=== PATIENT | male | born 1970 | race Two or more races ===

== ENCOUNTER 2023-07-02 19:24 | Emergency (ER) | payer MEDICAID, OTHER ==
[~2023-07-02] VITALS: Ht 165.1 cm; Wt 90.4 kg
[2023-07-02 21:32] LABS: Basophils # (auto) 0 10 ^3/uL (0-0.2); Basophils % (auto) 0.4 % (0.0-2.0); Eosinophils # (auto) 0.1 10 ^3/uL (0-0.8); Eosinophils % (auto) 1.6 % (0.0-7.0); Hematocrit 41.9 % (41.0-53.0); Hemoglobin 14.3 g/dL (13.5-17.5); Lymphocytes # (auto) 2.1 10 ^3/uL (0.4-5.4); Lymphocytes % (auto) 35.6 % (10.0-50.0); Mean Corpuscular Hemoglobin 28.9 pg (28.0-32.0); Mean Corpuscular Hgb Conc. 34.2 g/dL (32.0-36.0); Mean Corpuscular Volume 84.5 fL (80.0-100.0); Monocytes # (auto) 0.8 10 ^3/uL (0-1.3); Neutrophils % (auto) 49.4 % (37.0-80.0); Nucleated Red Blood Cells % 0.1 %; Red Blood Cells 4.96 10^6/uL (4.5-5.90); Red Cell Distribution Width 12.8 % (11.8-14.3)
[2023-07-02] MEDS ORDERED: KETOROLAC TROMETH 60MG/2ML VIAL IM ONE (21:45)
[2023-07-02 23:33] LABS: Erythrocyte Sedimentation Rate 16 mm/hr (0-20)
[2023-07-02] MEDS ORDERED: IBUP-1455 PO (23:43)
[2023-07-02] MEDS ORDERED: BACDST PO (23:43)
[2023-07-02] MEDS ORDERED: HYDROcodone-ACET 5/325MG TAB PO ONE (23:45)
[2023-07-02] MEDS ORDERED: cefTRIAXone SOD 1,000 MG VL IM ONE (23:45)
[2023-07-03 00:02] VITALS: BP 141/71; PULSE 68; RESP 18; TEMP 98.2; O2SAT 98
== END 2023-07-03 00:34 | disposition home or self-care (01) ==
LOC: ER 19:24
DX: L03.115 Cellulitis of right lower limb (principal); I10 Essential (primary) hypertension; E11.9 Type 2 diabetes mellitus without complications
CPT/HCPCS: 36415; 73630; 85025; 85652; 86141; 93971; 96372; 99285; J0696; J1885

== ENCOUNTER 2023-07-05 10:09 | Inpatient (IN) | payer MEDICAID ==
[~2023-07-05] VITALS: Ht 167.6 cm; Wt 90.0 kg
[~2023-07-05 10:09] MED LIST: BACDST PO; IBUP-1455 PO
[2023-07-05] MEDS: VANCOMYCIN 1GM/200ML 200 ML IV ONE (11:15)
[2023-07-05 11:49] LABS: Basophils # (auto) 0 10 ^3/uL (0-0.2); Basophils % (auto) 0.3 % (0.0-2.0); Eosinophils # (auto) 0.1 10 ^3/uL (0-0.8); Eosinophils % (auto) 1.4 % (0.0-7.0); Hematocrit 44.2 % (41.0-53.0); Hemoglobin 15.1 g/dL (13.5-17.5); Lymphocytes # (auto) 2.2 10 ^3/uL (0.4-5.4); Lymphocytes % (auto) 33.5 % (10.0-50.0); Mean Corpuscular Hemoglobin 28.8 pg (28.0-32.0); Mean Corpuscular Hgb Conc. 34.1 g/dL (32.0-36.0); Mean Corpuscular Volume 84.4 fL (80.0-100.0); Monocytes # (auto) 0.4 10 ^3/uL (0-1.3); Monocytes % (auto) 6.8 % (0.0-12.0); Neutrophils # (auto) 3.8 10 ^3/uL (1.6-8.6); Nucleated Red Blood Cells % 0.1 %; Red Blood Cells 5.24 10^6/uL (4.5-5.90); Red Cell Distribution Width 12.9 % (11.8-14.3); White Blood Cell 6.6 10^3/uL (4.4-10.8)
[2023-07-05 12:08] LABS: Chloride 105 mmol/L (98-107); Potassium 4.1 mmol/L (3.5-5.1); Sodium 137 mmol/L (136-145)
[2023-07-05 12:09] LABS: Anion Gap 8 (5-15); Calcium 9.4 mg/dL (8.5-10.1); Carbon Dioxide 24 mmol/L (20-30)
[2023-07-05 12:14] LABS: BUN/Creatinine Ratio 13.2 (10.0-20.0); Blood Urea Nitrogen 12 mg/dL (9-23); Glucose 127 mg/dL (74-106)
[2023-07-05] MEDS ORDERED: DOCUSATE SOD 100 MG CAP PO PRN (13:30)
[2023-07-05] MEDS ORDERED: DEXTROSE (50%) 50ML SYRG IV PRN (13:30)
[2023-07-05] MEDS ORDERED: VANCOMYCIN PER PHARMACY 0 MG IV SCH (13:30)
[2023-07-05] MEDS ORDERED: VANCOMYCIN 1GM/200ML 200 ML IV ONE (14:00)
[2023-07-05] MEDS: TETANUS-DIPTH-ACEL PERTUSSIS 0.5ML SYR Tdap IM ONE (14:45)
[2023-07-05] MEDS: SODIUM CHLORIDE 0.9% 1,000 ML IV SCH (14:45)
[2023-07-05 15:27] LABS: Urine Bacteria NONE SEEN /hpf (None Seen); Urine Blood Negative /uL (Negative); Urine Clarity Clear (Clear); Urine Color Colorless (Yellow); Urine Protein, UAD Negative (Negative); Urine Specific Gravity 1.016 (1.001-1.035); Urine Urobilinogen Normal (Negative); Urine WBC 1 /hpf (0 - 3)
[2023-07-05] MEDS: ACCU-CHEK COMFORT CURVE STRIP VI SCH (17:00)
[2023-07-05] MEDS: InsuLIN REG 1unit/0.01ml Soln (100units/ml) SC SCH (17:00)
[2023-07-05] MEDS: ONDANSETRON HCL 4 MG/2 ML VIAL IV PRN (17:58)
[2023-07-05] MEDS: MORPHINE SULFATE INJ 2 MG/ml SYRG IV PRN (17:59)
[2023-07-05 21:02] VITALS: PULSE 70; RESP 20; O2SAT 97
[2023-07-05 21:48] VITALS: BP 154/73; PULSE 62; RESP 20; TEMP 98.1; O2SAT 99
[2023-07-05 22:00] VITALS: BP 154/73; PULSE 62; RESP 21; TEMP 98.1; O2SAT 98
[2023-07-05] MEDS: VANCOMYCIN 1GM/200ML 200 ML IV SCH (22:20)
[2023-07-06] MEDS ORDERED: GABA-1250 PO (04:15)
[2023-07-06] MEDS ORDERED: METF-370 PO (04:15)
[2023-07-06 05:00] VITALS: BP 154/75; PULSE 68; RESP 19; TEMP 98.2; O2SAT 98
[2023-07-06 05:28] LABS: Basophils # (auto) 0 10 ^3/uL (0-0.2); Basophils % (auto) 0.3 % (0.0-2.0); Eosinophils # (auto) 0.1 10 ^3/uL (0-0.8); Eosinophils % (auto) 1.9 % (0.0-7.0); Hematocrit 39.4 % (41.0-53.0); Hemoglobin 13.4 g/dL (13.5-17.5); Lymphocytes # (auto) 2.3 10 ^3/uL (0.4-5.4); Lymphocytes % (auto) 31.1 % (10.0-50.0); Mean Corpuscular Hemoglobin 28.8 pg (28.0-32.0); Mean Corpuscular Volume 84.8 fL (80.0-100.0); Monocytes # (auto) 0.6 10 ^3/uL (0-1.3); Neutrophils # (auto) 4.3 10 ^3/uL (1.6-8.6); Neutrophils % (auto) 58.7 % (37.0-80.0); Nucleated Red Blood Cells % 0.1 %; Red Blood Cells 4.64 10^6/uL (4.5-5.90); Red Cell Distribution Width 12.6 % (11.8-14.3); White Blood Cell 7.3 10^3/uL (4.4-10.8)
[2023-07-06 05:42] LABS: Alanine Aminotransferase 24 U/L (7-40); Alkaline Phosphatase 59 U/L (46-116); Anion Gap 6 (5-15); BUN/Creatinine Ratio 12.7 (10.0-20.0); Blood Urea Nitrogen 10 mg/dL (9-23); Calcium 8.9 mg/dL (8.5-10.1); Carbon Dioxide 24 mmol/L (20-30); Chloride 107 mmol/L (98-107); Glucose 125 mg/dL (74-106); Sodium 137 mmol/L (136-145)
[2023-07-06 05:43] LABS: Albumin 3.9 g/dL (3.2-4.8); Aspartate Aminotransferase 18 U/L (13-40); Bilirubin, Total 0.5 mg/dL (0.2-1.0); Total Protein 6.5 g/dL (5.7-8.2)
[2023-07-06 09:00] VITALS: BP 149/80; PULSE 65; RESP 20; TEMP 98.3; O2SAT 98
[2023-07-06] MEDS: ENOXAPARIN SOD 40 MG/0.4 ML SYRINGE SC SCH (09:18)
[2023-07-06 13:00] VITALS: BP 147/76; PULSE 63; RESP 18; TEMP 97.7; O2SAT 96
[2023-07-06] MEDS: HYDROcodone-ACET 5/325MG TAB PO PRN (14:02)
[2023-07-06 17:00] VITALS: BP 146/61; PULSE 60; RESP 18; TEMP 98; O2SAT 94
[2023-07-06 20:00] VITALS: BP 146/70; PULSE 60; RESP 17; TEMP 98.1; O2SAT 98
[2023-07-06 22:00] VITALS: BP 146/70; PULSE 60; RESP 17; TEMP 98.1; O2SAT 98
[2023-07-06] MEDS: VANCOMYCIN 1GM/200ML 200 ML IV SCH (22:08)
[2023-07-06] MEDS ORDERED: VANCOMYCIN 1GM/200ML 200 ML IV SCH (22:15)
[2023-07-07 05:00] VITALS: BP_SYST 105; BP_SYST 145; BP_DIAS 63; BP_DIAS 77; PULSE 60; PULSE 79; RESP 17; TEMP 98.5; O2SAT 96; O2SAT 99
[2023-07-07] MEDS ORDERED: GABA-1308 PO (08:26)
[2023-07-07 09:00] VITALS: BP 143/70; PULSE 95; RESP 16; TEMP 97.6; O2SAT 96
[2023-07-07 09:00] LABS: Hepatitis B Surface Antigen Negative (Negative)
[2023-07-07] MEDS ORDERED: BACL10TA PO (09:06)
[2023-07-07] MEDS ORDERED: INSUINJ37 SC (09:06)
[2023-07-07] MEDS ORDERED: ATO40T PO (09:06)
[2023-07-07] MEDS ORDERED: METH-1181 PO (09:06)
[2023-07-07] MEDS ORDERED: DICL1GEL59 TOP (09:06)
[2023-07-07] MEDS ORDERED: LIDO5DIS21 TOP (09:06)
[2023-07-07] MEDS ORDERED: LOSA100T33 PO (09:06)
[2023-07-07 09:22] LABS: Hepatitis C Antibody Negative (Negative)
[2023-07-07 13:00] VITALS: BP 111/62; PULSE 60; RESP 15; TEMP 98.1; O2SAT 97
[2023-07-07 17:00] VITALS: BP 152/74; PULSE 58; RESP 18; TEMP 97.3; O2SAT 98
[2023-07-07 20:00] VITALS: RESP 16
[2023-07-07 22:00] VITALS: BP 144/71; PULSE 60; RESP 17; TEMP 98.2; O2SAT 96
[2023-07-08 04:00] VITALS: BP_SYST 115; BP_SYST 141; BP_DIAS 42; BP_DIAS 77; PULSE 65; RESP 16; RESP 17; TEMP 97.8; TEMP 97.9; O2SAT 94; O2SAT 95
[2023-07-08 09:00] VITALS: BP 134/73; PULSE 59; RESP 16; TEMP 97.8; O2SAT 96
[2023-07-08 13:00] VITALS: BP 121/73; PULSE 58; RESP 17; TEMP 98.3; O2SAT 95
[2023-07-08 17:00] VITALS: BP 154/75; PULSE 65; RESP 18; TEMP 97.7; O2SAT 96
[2023-07-08 20:00] VITALS: BP 144/70; PULSE 61; RESP 16; RESP 17; TEMP 98
[2023-07-08 21:54] VITALS: BP 146/70; PULSE 61; RESP 16; TEMP 98; O2SAT 94
[2023-07-09 04:53] VITALS: BP_SYST 130; BP_SYST 147; BP_DIAS 63; BP_DIAS 65; PULSE 64; PULSE 65; RESP 16; TEMP 98.1; O2SAT 95
[2023-07-09 09:00] VITALS: BP 127/67; PULSE 60; RESP 16; TEMP 97.8; O2SAT 96
[2023-07-09] MEDS: DAKINS HALF STR 0.25% (NaHypochlorite) 473 ML TOPICAL SOL TOP SCH (10:11)
[2023-07-09 13:00] VITALS: BP 150/73; PULSE 65; RESP 14; TEMP 98.3; O2SAT 95
[2023-07-09] MEDS ORDERED: LEVO500T91 PO (14:34)
== END 2023-07-09 18:00 | disposition home or self-care (01) | DRG 383 ==
LOC: ER 10:09 → OVERFLOW 13:35 → WEST WING 13:35
PROVIDERS: ADMIT Nurse Practitioner Family; ATTEND Internal Medicine
DX: L03.115 Cellulitis of right lower limb (principal); E11.65 Type 2 diabetes mellitus with hyperglycemia; E78.5 Hyperlipidemia, unspecified; L03.031 Cellulitis of right toe; I10 Essential (primary) hypertension
CPT/HCPCS: 36415; 73700; 80048; 80053; 80202; 81001; 82962; 85025; 86803; 87040; 87077; 87081; 87186; 87205; 87340; 90715; 93926; 93971; G0378; J1815; J2405

== ENCOUNTER 2024-03-02 14:45 | Inpatient (IN) | payer MEDICAID ==
[~2024-03-02] VITALS: Ht 167.6 cm; Wt 85.5 kg
[2024-03-02] MEDS: InsuLIN REG 1unit/0.01ml Soln (100units/ml) SC SCH (04:42)
[~2024-03-02 14:45] MED LIST changes: +ATOR-507 PO; +BACL10TA PO; +DICL1GEL59 TOP; +GABA-1308 PO; +INSUINJ37 SC; +LEVO500T91 PO; +LIDO5DIS21 TOP; +LOSA100T33 PO; +METF-370 PO; +METH-1181 PO
[2024-03-02 15:21] LABS: Basophils # (auto) 0 10 ^3/uL (0-0.2); Basophils % (auto) 0.1 % (0.0-2.0); Eosinophils # (auto) 0 10 ^3/uL (0-0.8); Eosinophils % (auto) 0.1 % (0.0-7.0); Hematocrit 47.2 % (41.0-53.0); Hemoglobin 16.9 g/dL (13.5-17.5); Lymphocytes # (auto) 1.1 10 ^3/uL (0.4-5.4); Lymphocytes % (auto) 13.2 % (10.0-50.0); Mean Corpuscular Hemoglobin 29.7 pg (28.0-32.0); Mean Corpuscular Hgb Conc. 35.8 g/dL (32.0-36.0); Monocytes # (auto) 0.4 10 ^3/uL (0-1.3); Neutrophils # (auto) 6.6 10 ^3/uL (1.6-8.6); Neutrophils % (auto) 81.6 % (37.0-80.0); Nucleated Red Blood Cells % 0.1 %; Platelet Count (auto) 187 10^3/uL (140-450); Red Blood Cells 5.68 10^6/uL (4.5-5.90); Red Cell Distribution Width 13.7 % (11.8-14.3)
[2024-03-02 15:34] LABS: Anion Gap 10 (5-15); Carbon Dioxide 25 mmol/L (20-31); Chloride 97 mmol/L (98-107); Potassium 3.5 mmol/L (3.5-5.1); Sodium 132 mmol/L (136-145)
[2024-03-02 15:35] LABS: Calcium 9.4 mg/dL (8.7-10.4)
[2024-03-02 15:40] LABS: BUN/Creatinine Ratio 9.6 (10.0-20.0); Blood Urea Nitrogen 11 mg/dL (9-23); Glucose 355 mg/dL (74-106)
[2024-03-02] MEDS: SODIUM CHLORIDE 0.9% 1,000 ML IV ONE (16:13)
[2024-03-02 16:14] VITALS: PULSE 93; RESP 18; O2SAT 97
[2024-03-02] MEDS ORDERED: ONDANSETRON HCL 4 MG/2 ML VIAL IV PRN (17:00)
[2024-03-02] MEDS ORDERED: NITROGLYCERIN 0.4 MG SL TAB SL PRN (17:00)
[2024-03-02] MEDS ORDERED: MORPHINE SULFATE INJ 2 MG/ml SYRG IV PRN (17:00)
[2024-03-02] MEDS ORDERED: DEXTROSE (50%) 50ML SYRG IV PRN (17:00)
[2024-03-02] MEDS: ACCU-CHEK COMFORT CURVE STRIP VI SCH (18:00)
[2024-03-02 21:00] VITALS: BP 120/63; PULSE 69; RESP 17; TEMP 97.3; O2SAT 96
[2024-03-02 21:21] VITALS: PULSE 74; RESP 18
[2024-03-02] MEDS: TEMAZEPAM 15 MG CAP PO PRN (22:33)
[2024-03-02] MEDS: GABAPENTIN 300 MG CAP PO SCH (22:33)
[2024-03-02] MEDS: ATORVASTATIN 20 MG TAB PO SCH (22:34)
[2024-03-02] MEDS ORDERED: NAPR1TAB24 PO (22:40)
[2024-03-03] VITALS (8 sets, daily range): BP systolic 110–142; BP diastolic 61–92; PULSE 52–91; RESP 16–18; TEMP 97.5–98.4; O2SAT 94–98
[2024-03-03] MEDS: ACETAMINOPHEN 325 MG TAB PO PRN (04:32)
[2024-03-03 05:41] LABS: Chloride 101 mmol/L (98-107); Potassium 3.2 mmol/L (3.5-5.1); Sodium 134 mmol/L (136-145)
[2024-03-03 05:42] LABS: Anion Gap 7 (5-15); Calcium 8.8 mg/dL (8.7-10.4); Carbon Dioxide 26 mmol/L (20-31)
[2024-03-03 05:47] LABS: BUN/Creatinine Ratio 14.9 (10.0-20.0); Blood Urea Nitrogen 13 mg/dL (9-23); Glucose 285 mg/dL (74-106)
[2024-03-03] MEDS: ASPirin 81 mg TAB PO SCH (09:08)
[2024-03-03] MEDS: SPIRONOLACTONE 25 MG TAB PO SCH (09:08)
[2024-03-03] MEDS: LOSARTAN POTASSIUM 50 MG TAB PO SCH (09:09)
[2024-03-03 09:12] LABS: Magnesium 1.8 mg/dL (1.6-2.6)
[2024-03-03] MEDS: CYCLOBENZAPRINE HCL 10 MG TAB PO ONE (18:45)
[2024-03-03] MEDS: IBUPROFEN 600 MG TAB PO ONE (18:45)
[2024-03-03] MEDS: ACETAMINOPHEN 325 MG TAB PO ONE (19:45)
[2024-03-03] MEDS: LACTATED RINGER'S 500 ML IV ONE (19:50)
[2024-03-03 23:09] LABS: Amphetamine Screen, Urine Neg (NEGATIVE); Benzodiazephine Screen, Urine Neg (NEGATIVE)
[2024-03-03 23:10] LABS: Barbiturate Scree,Urine Neg (NEGATIVE); Cannabinoid Screen, Urine Neg (NEGATIVE); Cocaine Screen, Urine Neg (NEGATIVE); Opiate Scree,Urine Neg (NEGATIVE); Phencyclidine Screen, Urine Neg (NEGATIVE)
[2024-03-04] VITALS (8 sets, daily range): BP systolic 118–129; BP diastolic 59–74; PULSE 55–68; RESP 17–19; TEMP 97.5–98.3; O2SAT 95–99
[2024-03-04] MEDS ORDERED: IBUPROFEN 600 MG TAB PO ONE (15:15)
[2024-03-04] MEDS ORDERED: ACETAMINOPHEN 325 MG TAB PO PRN (15:15)
[2024-03-04] MEDS ORDERED: IBUPROFEN 600 MG TAB PO PRN (15:15)
[2024-03-04] MEDS ORDERED: CYCLOBENZAPRINE HCL 10 MG TAB PO ONE (15:15)
[2024-03-04] MEDS: LACTATED RINGER'S 1,000 ML IV SCH (17:13)
[2024-03-05] VITALS (11 sets, daily range): BP systolic 107–147; BP diastolic 56–83; PULSE 52–84; RESP 11–21; TEMP 97.7–98.2; O2SAT 95–98
[2024-03-05 07:13] LABS: Basophils # (auto) 0 10 ^3/uL (0-0.2); Basophils % (auto) 0.4 % (0.0-2.0); Eosinophils # (auto) 0.1 10 ^3/uL (0-0.8); Eosinophils % (auto) 1.6 % (0.0-7.0); Hematocrit 42.8 % (41.0-53.0); Hemoglobin 15.1 g/dL (13.5-17.5); Lymphocytes # (auto) 2.6 10 ^3/uL (0.4-5.4); Lymphocytes % (auto) 50.5 % (10.0-50.0); Mean Corpuscular Hemoglobin 29.4 pg (28.0-32.0); Mean Corpuscular Hgb Conc. 35.3 g/dL (32.0-36.0); Mean Corpuscular Volume 83.1 fL (80.0-100.0); Monocytes # (auto) 0.4 10 ^3/uL (0-1.3); Monocytes % (auto) 7.2 % (0.0-12.0); Neutrophils # (auto) 2.1 10 ^3/uL (1.6-8.6); Neutrophils % (auto) 40.3 % (37.0-80.0); Nucleated Red Blood Cells % 0.2 %; Platelet Count (auto) 173 10^3/uL (140-450); Red Blood Cells 5.15 10^6/uL (4.5-5.90); Red Cell Distribution Width 13.3 % (11.8-14.3); White Blood Cell 5.1 10^3/uL (4.4-10.8)
[2024-03-05 07:24] LABS: Anion Gap 8 (5-15); Carbon Dioxide 26 mmol/L (20-31); Chloride 104 mmol/L (98-107); Potassium 3.5 mmol/L (3.5-5.1); Sodium 138 mmol/L (136-145)
[2024-03-05 07:26] LABS: Calcium 9.2 mg/dL (8.7-10.4)
[2024-03-05 07:30] LABS: BUN/Creatinine Ratio 10.8 (10.0-20.0); Blood Urea Nitrogen 8 mg/dL (9-23)
[2024-03-05 07:37] LABS: Glucose 141 mg/dL (74-106)
[2024-03-05 08:18] LABS: INR 1.07 (0.9-1.15); Partial Thromboplastin Time 27.9 SEC (24.5-34.5); Prothrombin Time 11.3 sec (9.3-11.8)
[2024-03-05] MEDS: HEPARIN IN NS 1000Units/500mL 1,500 ML ONE (08:20)
[2024-03-05] MEDS: IODIXANOL 320MG/ML 100ML BTL IV ONE (08:20)
[2024-03-05] MEDS: ANGIOMAX 250 MG VIAL IV ONE (08:40)
[2024-03-05] MEDS: HEPARIN SODIUM (PORCINE) 5000 UNITS/ML 1ML VIAL ONE (08:40)
[2024-03-05] MEDS: VERAPAMIL 2.5MG/ML INJ 2ML VIAL IV ONE (08:40)
[2024-03-05] MEDS: LIDOCAINE 2%HCL (LOCAL ANESTH.) INJ 20ML MDV ONE (09:10)
[2024-03-05] MEDS: fentaNYL CITRATE 100 MCG/2 ML VL ONE (09:10)
[2024-03-05] MEDS: SODIUM CHL 0.9% 0 ML ONE (09:10)
[2024-03-05] MEDS: MIDAZOLAM HCL 2MG/2ML 2ml VIAL (1mg/ml) ONE (09:10)
[2024-03-05 11:12] LABS: Basophils # (auto) 0 10 ^3/uL (0-0.2); Basophils % (auto) 0.3 % (0.0-2.0); Eosinophils # (auto) 0.1 10 ^3/uL (0-0.8); Eosinophils % (auto) 1.8 % (0.0-7.0); Hematocrit 45.6 % (41.0-53.0); Hemoglobin 15.7 g/dL (13.5-17.5); Lymphocytes # (auto) 2.1 10 ^3/uL (0.4-5.4); Lymphocytes % (auto) 44.2 % (10.0-50.0); Mean Corpuscular Hemoglobin 28.9 pg (28.0-32.0); Mean Corpuscular Hgb Conc. 34.5 g/dL (32.0-36.0); Mean Corpuscular Volume 83.8 fL (80.0-100.0); Monocytes # (auto) 0.3 10 ^3/uL (0-1.3); Monocytes % (auto) 6.7 % (0.0-12.0); Neutrophils # (auto) 2.3 10 ^3/uL (1.6-8.6); Nucleated Red Blood Cells % 0.1 %; Platelet Count (auto) 187 10^3/uL (140-450); Red Blood Cells 5.44 10^6/uL (4.5-5.90); Red Cell Distribution Width 13.4 % (11.8-14.3); White Blood Cell 4.8 10^3/uL (4.4-10.8)
[2024-03-05 11:28] LABS: INR 1.12 (0.9-1.15); Partial Thromboplastin Time 42.8 SEC (24.5-34.5); Prothrombin Time 11.8 sec (9.3-11.8)
[2024-03-05] MEDS: HEPARIN DRIP/D5W 100UNITS/ML 250 ML IV SCH ×2 (15:57→23:02)
[2024-03-05] MEDS: CYCLOBENZAPRINE HCL 10 MG TAB PO SCH (18:06)
[2024-03-05 19:42] LABS: INR 1.03 (0.9-1.15); Partial Thromboplastin Time 32.3 SEC (24.5-34.5); Prothrombin Time 10.9 sec (9.3-11.8)
[2024-03-05] MEDS: HEPARIN SODIUM (PORCINE) 5000 UNITS/ML 1ML VIAL IV ONE (22:59)
[2024-03-06] VITALS (9 sets, daily range): BP systolic 116–135; BP diastolic 65–72; PULSE 52–78; RESP 16–20; TEMP 97.2–98.5; O2SAT 96–99
[2024-03-06 06:43] LABS: Basophils # (auto) 0 10 ^3/uL (0-0.2); Basophils % (auto) 0.3 % (0.0-2.0); Eosinophils # (auto) 0.1 10 ^3/uL (0-0.8); Eosinophils % (auto) 1.5 % (0.0-7.0); Hematocrit 44.4 % (41.0-53.0); Hemoglobin 15.7 g/dL (13.5-17.5); Lymphocytes # (auto) 2.7 10 ^3/uL (0.4-5.4); Mean Corpuscular Hemoglobin 29.6 pg (28.0-32.0); Mean Corpuscular Hgb Conc. 35.4 g/dL (32.0-36.0); Mean Corpuscular Volume 83.6 fL (80.0-100.0); Monocytes # (auto) 0.4 10 ^3/uL (0-1.3); Monocytes % (auto) 8.1 % (0.0-12.0); Neutrophils # (auto) 1.9 10 ^3/uL (1.6-8.6); Neutrophils % (auto) 38.1 % (37.0-80.0); Nucleated Red Blood Cells % 0.1 %; Platelet Count (auto) 175 10^3/uL (140-450); Red Blood Cells 5.31 10^6/uL (4.5-5.90); Red Cell Distribution Width 13.3 % (11.8-14.3); White Blood Cell 5.1 10^3/uL (4.4-10.8)
[2024-03-06 09:45] LABS: Alanine Aminotransferase 38 U/L (7-40); Alkaline Phosphatase 73 U/L (46-116); Anion Gap 5 (5-15); Aspartate Aminotransferase 19 U/L (13-40); BUN/Creatinine Ratio 12.3 (10.0-20.0); Bilirubin, Total 0.8 mg/dL (0.2-1.0); Blood Urea Nitrogen 10 mg/dL (9-23); Calcium 9.5 mg/dL (8.7-10.4); Carbon Dioxide 29 mmol/L (20-31); Chloride 105 mmol/L (98-107); Glucose 173 mg/dL (74-106); Magnesium 1.8 mg/dL (1.6-2.6); Potassium 3.7 mmol/L (3.5-5.1); Sodium 139 mmol/L (136-145); Total Protein 6.8 g/dL (5.7-8.2)
[2024-03-06 12:33] LABS: INR 1.12 (0.9-1.15); Partial Thromboplastin Time 66.8 SEC (24.5-34.5); Prothrombin Time 11.8 sec (9.3-11.8)
[2024-03-06 18:57] LABS: INR 1.12 (0.9-1.15); Partial Thromboplastin Time 63.5 SEC (24.5-34.5); Prothrombin Time 11.8 sec (9.3-11.8)
[2024-03-07] VITALS (7 sets, daily range): BP systolic 104–139; BP diastolic 55–85; PULSE 55–91; RESP 16–19; TEMP 36.4; O2SAT 96–98
[2024-03-07 04:51] LABS: Basophils # (auto) 0 10 ^3/uL (0-0.2); Basophils % (auto) 0.3 % (0.0-2.0); Eosinophils # (auto) 0.1 10 ^3/uL (0-0.8); Eosinophils % (auto) 1.6 % (0.0-7.0); Hematocrit 44.7 % (41.0-53.0); Hemoglobin 15.7 g/dL (13.5-17.5); Lymphocytes # (auto) 2.7 10 ^3/uL (0.4-5.4); Lymphocytes % (auto) 47.2 % (10.0-50.0); Mean Corpuscular Hemoglobin 29.5 pg (28.0-32.0); Mean Corpuscular Volume 84.1 fL (80.0-100.0); Monocytes # (auto) 0.5 10 ^3/uL (0-1.3); Monocytes % (auto) 7.9 % (0.0-12.0); Neutrophils # (auto) 2.5 10 ^3/uL (1.6-8.6); Platelet Count (auto) 184 10^3/uL (140-450); Red Blood Cells 5.31 10^6/uL (4.5-5.90); White Blood Cell 5.7 10^3/uL (4.4-10.8)
[2024-03-07 05:02] LABS: INR 1.08 (0.9-1.15); Partial Thromboplastin Time 69.5 SEC (24.5-34.5); Prothrombin Time 11.4 sec (9.3-11.8)
[2024-03-07] MEDS ORDERED: LOSA-534 PO (11:48)
[2024-03-07] MEDS ORDERED: CLOP75TA70 PO (11:48)
[2024-03-07] MEDS ORDERED: METO-6 PO (11:48)
[2024-03-07] MEDS ORDERED: ASPI-325 PO (11:48)
[2024-03-08] MEDS ORDERED: METOPROLOL SUCCINATE XL 50 MG TAB PO SCH (10:00)
[2024-03-08] MEDS ORDERED: ASPirin 81 mg TAB PO SCH (10:00)
[2024-03-08] MEDS ORDERED: CLOPIDOGREL BISULFATE 75 MG TAB PO SCH (10:00)
[2024-03-08] MEDS ORDERED: LOSARTAN POTASSIUM 50 MG TAB PO SCH (10:00)
== END 2024-03-07 16:57 | disposition home or self-care (01) | DRG 191 ==
LOC: ER 14:45 → TELE 16:54 → TELE-WESTW 18:55
PROVIDERS: ADMIT Student in an Organized Health Care Education/Training Program; ATTEND Student in an Organized Health Care Education/Training Program
PROC: 4A023N7 Measurement of Cardiac Sampling and Pressure, Left Heart, Percutaneous Approach (ICD-10-PCS; principal; 2024-03-05)
PROC: B211YZZ Fluoroscopy of Multiple Coronary Arteries using Other Contrast (ICD-10-PCS; 2024-03-05)
DX: I25.119 Atherosclerotic heart disease of native coronary artery with unspecified angina pectoris (principal); A08.4 Viral intestinal infection, unspecified; E78.5 Hyperlipidemia, unspecified; I10 Essential (primary) hypertension; G44.209 Tension-type headache, unspecified, not intractable; E66.9 Obesity, unspecified; I77.1 Stricture of artery; E11.9 Type 2 diabetes mellitus without complications; Z90.49 Acquired absence of other specified parts of digestive tract; Z68.30 Body mass index [BMI] 30.0-30.9, adult; Z79.4 Long term (current) use of insulin; Z79.84 Long term (current) use of oral hypoglycemic drugs; Z79.899 Other long term (current) drug therapy
CPT/HCPCS: 36415; 70450; 71045; 72040; 73030; 80048; 80053; 80061; 80307; 82962; 83036; 83735; 83880; 84443; 84484; 85025; 85379; 85610; 85730; 93005; 93306; 93458; 99152; 99291; G0378; J1815; J2250; Q9967

== ENCOUNTER 2024-04-20 08:53 | Inpatient (IN) | payer MEDICAID ==
[~2024-04-20] VITALS: Ht 167.6 cm; Wt 82.4 kg
[~2024-04-20 08:53] MED LIST changes: +ASPI-325 PO; -BACDST PO; -BACL10TA PO; +CLOP75TA70 PO; -DICL1GEL59 TOP; -IBUP-1455 PO; -INSUINJ37 SC; -LEVO500T91 PO; -LIDO5DIS21 TOP; +LOSA-534 PO; -LOSA100T33 PO; -METH-1181 PO; +METO-6 PO; +NAPR1TAB24 PO
[2024-04-20 09:46] LABS: Alanine Aminotransferase 35 U/L (7-40); Albumin 4.6 g/dL (3.2-4.8); Alkaline Phosphatase 97 U/L (46-116); Anion Gap 7 (5-15); Aspartate Aminotransferase 11 U/L (13-40); BUN/Creatinine Ratio 10.7 (10.0-20.0); Basophils # (auto) 0 10 ^3/uL (0-0.2); Basophils % (auto) 0.4 % (0.0-2.0); Bilirubin, Total 0.5 mg/dL (0.2-1.0); Blood Urea Nitrogen 9 mg/dL (9-23); Calcium 9.9 mg/dL (8.7-10.4); Carbon Dioxide 27 mmol/L (20-31); Chloride 104 mmol/L (98-107); Eosinophils # (auto) 0.1 10 ^3/uL (0-0.8); Eosinophils % (auto) 1.9 % (0.0-7.0); Glucose 211 mg/dL (74-106); Hematocrit 43.1 % (41.0-53.0); Lymphocytes % (auto) 27.6 % (10.0-50.0); Mean Corpuscular Hemoglobin 27.1 pg (28.0-32.0); Mean Corpuscular Hgb Conc. 32.6 g/dL (32.0-36.0); Mean Corpuscular Volume 83.3 fL (80.0-100.0); Monocytes # (auto) 0.4 10 ^3/uL (0-1.3); Neutrophils # (auto) 4.6 10 ^3/uL (1.6-8.6); Neutrophils % (auto) 64.1 % (37.0-80.0); Nucleated Red Blood Cells % 0.1 %; Platelet Count (auto) 266 10^3/uL (140-450); Potassium 3.9 mmol/L (3.5-5.1); Red Blood Cells 5.18 10^6/uL (4.5-5.90); Red Cell Distribution Width 15.1 % (11.8-14.3); Sodium 138 mmol/L (136-145); White Blood Cell 7.2 10^3/uL (4.4-10.8)
--- NOTE | 2024-04-20 10:11 | ED.PDOC ---
HPI Comments 54 year old male presents to the ED with chief complaint of chest pain. Patient reports that he has been experiencing left arm burning pain that radiates into his left chest, back, neck, and head for the past week with associated abdominal pain. Patient relays that he had a recent surgery performed in [place] a month ago on 03/19/24 for his heart, but does not have a follow up with cardiology until next month. Patient states he was previously on Plavix for the surgery, but was told once the prescription and refills run out, he can stop, which he has since running out of it. Patient denies any SOB, dizziness, N/V, fever, chills, numbness, or weakness. Chief Complaint: Upper Extremity Time Seen by MD: 10:06 Primary Care Provider: unknown Reviewed Notes: Nurses Notes, Medications, Allergies Allergies: Coded Allergies: NO KNOWN ALLERGIES (Unverified , 07/02/23) Home Meds Active Scripts Metoprolol Succinate (Toprol Xl) 50 Mg Tab, 25 MG PO DAILY for 90 Days, #45 TAB 1 Refill Prov:JAMES RODRIGUEZ MD 03/07/24 Losartan Potassium (Losartan Potassium) 50 Mg Tab, 25 MG PO DAILY for 90 Days, #45 TAB 1 Refill Prov:JAMES RODRIGUEZ MD 03/07/24 Clopidogrel Bisulfate (CLOPIDOGREL) 75 Mg Tab, 75 MG PO DAILY for 90 Days, #90 TAB 1 Refill Prov:JAMES RODRIGUEZ MD 03/07/24 Aspirin (Aspirin Low Dose) 81 Mg Tab, 81 MG PO DAILY for 90 Days, #90 TAB 1 Refill Prov:JAMES RODRIGUEZ MD 03/07/24 Reported Medications Naproxen (Naproxen Ec) 500 Mg Tab, 500 MG PO, TAB 03/02/24 Atorvastatin Calcium (Lipitor) 40 Mg Tab, 1 TAB PO DAILY 07/07/23 Gabapentin (Gabapentin) 100 Mg Cap, 6 CAP PO TID 07/07/23 Metformin Hydrochloride (Metformin Hcl) 500 Mg Tab, 1 TAB PO DAILY 07/06/23 Information Source: Patient Mode of Arrival: Ambulatory Severity: Moderate Timing: Weeks Duration: Since onset Prehospital treatment: None Location: Chest (L) Radiation: Back, Neck, Arm (L) Quality: Aching Onset: At Rest Cardiac Risk Factors: Hyperlipidemia, HTN, Diabetes PE Risk Factors: Recent Surgery Modifying Factors: Nothing Past Medical History PAST MEDICAL HISTORY: DM, High Lipids, HTN Surgical History: Appendectomy Surgical History (Other): Open heart surgery x 1 month ago Family History Family History: Reviewed,noncontributory to illness Social History Smoker: Non-Smoker Alcohol: Denies ETOH Use Drugs: Denies Drug Use Lives In: Home Constitutional: denies: chills, diaphoresis, fatigue, fever, malaise, sweats, weakness, others EENTM: denies: blurred vision, double vision, ear bleeding, ear discharge, ear drainage, ear pain, ear ringing, eye pain, eye redness, hearing loss, mouth pain, mouth swelling, nasal discharge, nose bleeding, nose congestion, nose pain, photophobia, tearing, throat pain, throat swelling, voice changes, others Respiratory: denies: cough, hemoptysis, orthopnea, SOB at rest, shortness of breath, SOB with excertion, stridor, wheezing, others Cardiovascular: reports: chest pain, left arm pain; denies: dizzy spells, diaphoresis, Dyspnea on exertion, edema, irregular heart beat, lightheadedness, palpitations, PND, syncope, others Gastrointestinal: reports: abdominal pain; denies: abdomen distended, blood streaked bowels, constipated, diarrhea, dysphagia, difficulty swallowing, hematemesis, melena, nausea, poor appetite, poor fluid intake, rectal bleeding, rectal pain, vomiting, others Genitourinary: denies: burning, dysuria, flank pain, frequency, hematuria, incontinence, penile discharge, penile sore, pain, testicle pain, testicle swelling, urgency, others Neurological: reports: headache; denies: dizziness, fainting, left sided numbness, left sided weakness, numbness, paresthesia, pre-existing deficit, right sided numbness, right sided weakness, seizure, speech problems, tingling, tremors, weakness, others Musculoskeletal: reports: back pain, neck pain; denies: gout, joint pain, joint swelling, muscle pain, muscle stiffness, others Integumetry: denies: bruises, change in color, change in hair/nails, dryness, laceration, lesions, lumps, rash, wounds, others Allergic/Immunocompromised: denies: Difficulty Healing, Frequent Infections, Hives, Itching, others Hematologic/Lymphatic: denies: anemia, blood clots, easy bleeding, easy bruising, swollen glands, others Endocrine: denies: excessive hunger, excessive sweating, excessive thirst, excessive urination, flushing, intolerance to cold, intolerance to heat, unexplained weight gain, unexplained weight loss, others Psychiatric: denies: anxiety, bipolar disorder, depression, hopeless, panic disorder, schizophrenia, sleepless, suicidal, others All Other Systems: Reviewed and Negative Physical Exam General Appearance: Mild Distress, Moderate Distress, Normal HEENT: Normal ENT Inspection, PERRL/EOMI Neck: Full Range of Motion, Non-Tender, Normal, Normal Inspection Respiratory: Chest Non-Tender, Lungs Clear, No Accessory Muscle Use, No Respiratory Distress, Normal Breath Sounds Cardiovascular: No Edema, No JVD, No Murmur, No Gallop, Normal Peripheral Pulses, Regular Rate/Rhythm Breast Exam: Deferred Gastrointestinal: No Organomegaly, Non Tender, No Pulsatile Mass, Normal Bowel Sounds, Soft Genitalia: Deferred Pelvic: Deferred Rectal: Deferred Extremities: No calf tenderness, Normal capillary refill, Normal inspection, Normal range of motion, Non-tender, No pedal edema Musculoskeletal : Apperance: Normal Neurologic: Alert, inspector subassembly II-XII nml as Tested, No Motor Deficits, Normal Affect, Normal Mood, No Sensory Deficits Cerebellar Function: Normal Reflexes: Normal Skin: Dry, Normal Color, Warm Peripheral Pulses: 1+ carotid (R), 1+ carotid (L) Lymphatic: No Adenopathy EKG EKG : Pulse Rate (adult): 72 [place]: Normal Cardiac Rhythm: NSR ST: Inf, Ant, Ischemia Was a procedure done? Was a procedure done?: No CP Differential Dx Differential Diagnosis: Angina, Anxiety / Panic Attack, Electrolyte Disorder, Heart Failure, NE, Pulmonary Embolus, Renal Failure Differential Diagnosis: CHF, HTN Essential Differential Diagnosis: Angina, Chest Wall Pain, Costochondritis, Esophageal reflux/spasm, Myocardial Infarction, Pericarditis, Pneumonia, Pulmonary Embolus X-Ray, Labs, Meds, VS Vital Signs Date Time Temp Pulse Resp B/P (MAP) Pulse Ox O2 Delivery O2 Flow Rate FiO2 04/20/24 11:51 67 16 113/70 04/20/24 11:42 97.9 67 16 113/70 (84) 99 97.9 04/20/24 11:36 72 04/20/24 10:26 98.2 72 17 97/63 (74) 98 98.2 04/20/24 10:26 72 17 98 Room Air 04/20/24 09:07 72 04/20/24 09:04 98.3 74 18 121/73 (89) 96 Lab Test 04/20/24 10:33 04/20/24 10:11 04/20/24 09:19 Range/Units Urine Color Yellow Yellow Urine Clarity Clear Clear Urine pH 5.5 5.0-9.0 Urine Specific [place] 1.028 1.001-1.035 Urine Protein Trace H Negative Urine Ketones Negative Negative Urine Blood Negative Negative /uL Urine Nitrite Negative Negative Urine Bilirubin Negative Negative Urine Urobilinogen Normal Negative mg/dL Urine Leukocyte Esterase Negative Negative /uL Urine RBC 1 0 - 3 /hpf Urine WBC 1 0 - 3 /hpf Urine Squamous Epithelial Cells Few <5 /hpf Urine Bacteria None seen None Seen /hpf Urine Mucus Few None Seen Urine Glucose Normal Normal mg/dL Prothrombin Time 11.5 9.3-11.8 sec Prothrombin Time INR 1.09 0.9-1.15 Activated Partial Thromboplast Time 26.1 24.5-34.5 SEC D-Dimer, Quantitative 2.56 H 0.0-0.49 mg/L FEU Troponin I High Sensitivity 5 5 </=54 ng/L C-Reactive Protein High Sensitivity 0.34 <1.0 mg/dL Thyroid Stimulating Hormone (TSH) 1.48 0.55-4.78 uIU/mL White Blood Count 7.2 4.4-10.8 10^3/uL Red Blood Count 5.18 4.5-5.90 10^6/uL Hemoglobin 14.0 13.5-17.5 g/dL Hematocrit 43.1 41.0-53.0 % Mean Corpuscular Volume 83.3 80.0-100.0 fL Mean Corpuscular Hemoglobin 27.1 L 28.0-32.0 pg Mean Corpuscular Hemoglobin Concent 32.6 32.0-36.0 g/dL Red Cell Distribution Width 15.1 H 11.8-14.3 % Platelet Count 266 140-450 10^3/uL Mean Platelet Volume 7.7 6.9-10.8 fL Neutrophils (%) (Auto) 64.1 37.0-80.0 % Lymphocytes (%) (Auto) 27.6 10.0-50.0 % Monocytes (%) (Auto) 6.0 0.0-12.0 % Eosinophils (%) (Auto) 1.9 0.0-7.0 % Basophils (%) (Auto) 0.4 0.0-2.0 % Neutrophils # (Auto) 4.6 1.6-8.6 10 ^3/uL Lymphocytes # (Auto) 2.0 0.4-5.4 10 ^3/uL Monocytes # (Auto) 0.4 0-1.3 10 ^3/uL Eosinophils # (Auto) 0.1 0-0.8 10 ^3/uL Basophils # (Auto) 0 0-0.2 10 ^3/uL Nucleated Red Blood Cells 0.1 % Sodium Level 138 136-145 mmol/L Potassium Level 3.9 3.5-5.1 mmol/L Chloride Level 104 98-107 mmol/L Carbon Dioxide Level 27 20-31 mmol/L Anion Gap 7 5-15 Blood Urea Nitrogen 9 9-23 mg/dL Creatinine 0.84 0.700-1.30 mg/dL Glomerular Filtration Rate Calc 104 >90 mL/min BUN/Creatinine Ratio 10.7 10.0-20.0 Serum Glucose 211 H 74-106 mg/dL Calcium Level 9.9 8.7-10.4 mg/dL Magnesium Level 1.7 1.6-2.6 mg/dL Total Bilirubin 0.5 0.2-1.0 mg/dL Aspartate Amino Transferase (AST) 11 L 13-40 U/L Alanine Aminotransferase (ALT) 35 7-40 U/L Alkaline Phosphatase 97 46-116 U/L Total Protein 8.0 5.7-8.2 g/dL Albumin 4.6 3.2-4.8 g/dL Current Medications Medications (Trade) Dose Ordered Sig/Ingrid Route Start Time Stop Time Status Last Admin Aspirin 162 mg ONCE ONCE PO 04/20/24 10:00 04/20/24 10:01 DC 04/20/24 10:15 Sodium Chloride 1,000 ml @ 150 mls/hr Q6H40M ONCE IV 04/20/24 10:00 04/20/24 16:39 04/20/24 10:16 Morphine Sulfate 2 mg ONCE ONCE IV 04/20/24 11:45 04/20/24 11:46 DC 04/20/24 11:51 Chest XR: FINDINGS: Lines and Tubes: Median sternotomy. Lungs: Clear Pleura: No effusion. No pneumothorax. Cardiomediastinal contours: Unremarkable Bones: Unremarkable IMPRESSION: No evidence of acute disease. X-Ray, Labs, Meds, VS Comment Course in the emergency department eventful patient came in complaining of body ache and chest pain radiating to left shoulder arm and neck patient had a CABG at the [place] on March 19, 2024 has not been followed up he also complains of shortness of breath Patient does not take place Plavix he was told one done no refills Chest x-ray normal EKG shows normal sinus rhythm at 72 with a right ventricular hypertrophy and ischemic changes in the inferior and anterior leads CBC normal CMP blood sugar 211 INR 1.19 D-dimer 2.56 Troponin 5 and five CRP 0.34 TSH 1.48 The magnesium 1.7 angiogram is negative Patient will be admitted for further care Images Reviewed?: Images reviewed and evaluated by me Time of 1ST Reevaluation: 11:06 Reevaluation 1ST: Unchanged Patient Education/Counseling: Diagnosis, Treatment Family Education/Counseling: Diagnosis, Treatment Departure 1 Departure Time of Disposition: 14:56 Impression: Primary Impression: Acute chest pain Additional Impressions: Hyperglycemia due to diabetes mellitus Ischemic heart disease CAD (coronary artery disease) of artery bypass graft Qualified Codes: I25.700 - Atherosclerosis of coronary artery bypass graft(s), unspecified, with unstable angina pectoris Disposition: ADMITTED INPATIENT Condition: Serious Critical Care Note Critical Care Time?: No Stability Stability form required: Yes Unstable for transfer: Telemetry monitoring (Telemetry monitoring required), Requires medication (Requires Med for stabilization) Heart Score Heart Score: Heart Score Response (Comments) Value History Highly Suspicious 2 EKG Repolarization Disturb 1 Age 45-64 1 Risk Factors >3 or Hx ASHD 2 Troponin Normal limit 0 Total 6 I personally scribed for DENNIS ORTEGA MD ([email or web address]) on 04/20/24 at 10:11. Electronically submitted by Mark Melo ([email or web address]). I personally scribed for DENNIS ORTEGA MD ([email or web address]) on 04/20/24 at 10:51. Electronically submitted by Mark Melo ([email or web address]). DENNIS ORTEGA MD Apr 20, 2024 10:11
[2024-04-20] MEDS: ASPirin 81 mg TAB PO ONE (10:15)
[2024-04-20] MEDS: SODIUM CHLORIDE 0.9% 1,000 ML IV ONE (10:16)
--- NOTE | 2024-04-20 10:38 | DVH ---
CHEST RADIOGRAPH Indication: cp sob Technique: Frontal and lateral view of the chest was obtained Comparison: None FINDINGS: Lines and Tubes: Median sternotomy. Lungs: Clear Pleura: No effusion. No pneumothorax. Cardiomediastinal contours: Unremarkable Bones: Unremarkable IMPRESSION: No evidence of acute disease.
[2024-04-20 10:46] LABS: INR 1.09 (0.9-1.15); Partial Thromboplastin Time 26.1 SEC (24.5-34.5); Prothrombin Time 11.5 sec (9.3-11.8)
[2024-04-20 11:09] LABS: Magnesium 1.7 mg/dL (1.6-2.6)
[2024-04-20] MEDS: MORPHINE SULFATE INJ 2 MG/ml SYRG IV ONE (11:51)
[2024-04-20 13:12] LABS: Urine Bacteria None Seen /hpf (None Seen)
[2024-04-20 13:18] LABS: Urine Blood Negative /uL (Negative); Urine Clarity Clear (Clear); Urine Color Yellow (Yellow); Urine Mucus FEW (None Seen); Urine Protein, UAD TRACE (Negative); Urine Specific Gravity 1.028 (1.001-1.035); Urine Urobilinogen Normal (Negative); Urine WBC 1 /hpf (0 - 3); Urine pH 5.5 (5.0-9.0)
--- NOTE | 2024-04-20 13:41 | DVH ---
CTA Chest with intravenous contrast INDICATION: Pulmonary embolism COMPARISON: CT CT R FOOT WO CONTRAST on DOS: 07/05/23 TECHNIQUE: Multidetector spiral CTA of the chest was performed of the chest with intravenous contrast . PULMONARY ANGIOGRAPHY PROTOCOL was utilized using a bolus-tracking technique centered on the main p ulmonary artery. Axial, coronal and sagittal multiplanar and MIP reformats were performed. CONTRAST: Type of contrast: Omni 350 Contrast injected: Motor ml Radiation dose : Chest: CTDI volume is 38 mGy. Dose-length product is 813 mGy*cm The dose indicators for CT are the volume computed Tomography (CT) dose Index (CTDIvol) and the dose Length product (DLP), and are measured in units of mGy and mGy-cm, respectively. These indicators are not patient dose, but values generated from the CT scanner acquisition factors. The report includes radiation exposure data for exposures received during this examination. Findings: Pulmonary artery: No pulmonary embolism Lower neck: Normal thyroid. Lungs: No focal consolidation, pleural effusion or pneumothorax. Atelectasis and scarring in the lung bases. Heart/Vascular Structures: Normal heart size. Trace pericardial effusion. Moderate coronary artery ca lcifications. Lymph Nodes: No adenopathy Pleura: No pleural effusion or significant pneumothorax. Musculoskeletal: No acute osseous abnormality. Soft tissues: Normal. Upper abdomen: Limited portions of the upper abdomen are unremarkable. IMPRESSION: 1. No pulmonary embolism. 2. No acute thoracic finding. HS:Y
[2024-04-20] MEDS ORDERED: DOCUSATE SOD 100 MG CAP PO PRN (16:15)
[2024-04-20] MEDS ORDERED: ACETAMINOPHEN 325 MG TAB PO PRN (16:15)
[2024-04-20] MEDS ORDERED: NITROGLYCERIN 0.4 MG SL TAB SL PRN (16:15)
[2024-04-20] MEDS ORDERED: ONDANSETRON HCL 4 MG/2 ML VIAL IV PRN (16:15)
[2024-04-20] MEDS ORDERED: MORPHINE SULFATE INJ 2 MG/ml SYRG IV PRN (16:15)
[2024-04-20] MEDS ORDERED: DEXTROSE (50%) 50ML SYRG IV PRN (16:30)
--- NOTE | 2024-04-20 16:41 | DVHHP2 ---
History of Present Illness Reason for Visit: Left shoulder pain History of Present Illness Carlos Dacosta is a 54-year-old male, with past medical history of coronary artery disease, recent CABG surgery, hypertension, hyperlipidemia, and diabetes, who comes in today for left shoulder pain. Patient states his shoulder pain started about 2 weeks and has worsened. His pain increased to the point that he is unable to sleep, causing him to come to the hospital. He states the pain radiates to his back and chest, and that he has difficulty moving or using his left arm at all. Cardiovascular: CAD, HTN, hyperipidemia Endocrine: Diabetes Past Surgical History: Appendectomy, CABG (03/19/2024) Smoke: No ALCOHOL: none Drugs: None Lives: with Family Domestic Violence: Neg Review of Systems Constitutional: No: Fever, Chills, Sweats, Weakness, Malaise, Other Eyes: No: Pain, Vision change, Conjunctivae inflammation, Eyelid inflammation, Other, Redness ENT: No: Ear pain, Ear discharge, Nose pain, Nose discharge, Nose congestion, Mouth pain, Mouth swelling, Throat pain, Throat swelling, Other Respiratory: No: Cough, Dry, Shortness of breath, SOB with excertion, Wheezing, Hemoptysis, Pleuritic Pain, Sputum, Wheezing, Other Cardiovascular: No: Chest Pain, Palpitations, Orthopnea, Paroxysmal Noc. Dyspne a, Edema, Lt Headedness, Other Gastrointestinal: No: Nausea, Vomiting, Abdominal Pain, Diarrhea, Constipation, Melena, Hematochezia, Other Genitourinary: No Dysuria, No Frequency, No Incontinence, No Hematuria, No Retention, No Other Musculoskeletal: shoulder pain (left, radiates to back and chest. Having difficulty moving left arm); No: other, neck pain, arm pain, back pain, hand pain, leg pain, foot pain Skin: No: Rash, Lesions, Jaundice, Bruising, Other Neurological: No: Weakness, Numbness, Incoordination, Change in speech, Confusion, Seizures, Other Allergies: Coded Allergies: NO KNOWN ALLERGIES (Unverified , 07/02/23) Medications Current Medications Medications Dose Ordered Sig/Ingrid Route Start Time Stop Time Status Last Admin Dose Admin Sodium Chloride 10 ml Q8HR IV 04/20/24 22:00 UNV Acetaminophen/ Hydrocodone Bitart 1 tab Q4HP PRN PO 04/20/24 16:15 UNV Ondansetron HCl 4 mg Q4HP PRN IV 04/20/24 16:15 UNV Docusate Sodium 100 mg BIDPRN PRN PO 04/20/24 16:15 UNV Acetaminophen 650 mg Q6HP PRN PO 04/20/24 16:15 UNV Morphine Sulfate 2 mg Q4HPRN PRN IV 04/20/24 16:15 UNV Nitroglycerin 0.4 mg Q5MINP PRN SL 04/20/24 16:15 UNV Morphine Sulfate 2 mg Q30M PRN IV 04/20/24 16:15 UNV Aspirin 81 mg DAILY PO 04/21/24 10:00 UNV Clopidogrel Bisulfate 75 mg DAILY PO 04/21/24 10:00 UNV Losartan Potassium 25 mg DAILY PO 04/21/24 10:00 UNV Metoprolol Succinate 25 mg DAILY PO 04/21/24 10:00 UNV Patient Own Medication 1 tab DAILY PO 04/21/24 10:00 UNV Diagnostic Test (Pha) 1 strip ACHS 04/20/24 17:00 UNV Insulin Human Regular HS SC 04/20/24 22:00 UNV Insulin Human Regular AC SC 04/20/24 17:00 UNV Dextrose 50 ml UD PRN IV 04/20/24 16:30 UNV Exam Vital Signs Vital Signs Date Time Temp Pulse Resp B/P (MAP) Pulse Ox O2 Delivery O2 Flow Rate FiO2 04/20/24 11:51 67 16 113/70 04/20/24 11:42 97.9 99 97.9 04/20/24 10:26 Room Air General Appearance: Alert, Oriented X3, Cooperative, moderate distress HEENT: Atraumatic, PERRLA Respiratory: Clear to auscultation, Normal air movement Cardiovascular: Regular rate, Normal S1, Normal S2, No murmurs Abdominal: Normal bowel sounds, Soft, No tenderness Extremities: No clubbing, No cyanosis, Normal pulses, Other (left upper extremity swelling, pain, difficulty moving arm) Skin: No rashes, No breakdown, No significant lesion Neuro: Normal gait, Normal speech Psych/Mental Status: Mental status NL, Mood NL Labs/Xrays Labs Test 04/20/24 10:33 04/20/24 10:11 04/20/24 09:19 Range/Units Urine Color Yellow Yellow Urine Clarity Clear Clear Urine pH 5.5 5.0-9.0 Urine Specific [place] 1.028 1.001-1.035 Urine Protein Trace H Negative Urine Ketones Negative Negative Urine Blood Negative Negative /uL Urine Nitrite Negative Negative Urine Bilirubin Negative Negative Urine Urobilinogen Normal Negative mg/dL Urine Leukocyte Esterase Negative Negative /uL Urine RBC 1 0 - 3 /hpf Urine WBC 1 0 - 3 /hpf Urine Squamous Epithelial Cells Few <5 /hpf Urine Bacteria None seen None Seen /hpf Urine Mucus Few None Seen Urine Glucose Normal Normal mg/dL Prothrombin Time 11.5 9.3-11.8 sec Prothrombin Time INR 1.09 0.9-1.15 Activated Partial Thromboplast Time 26.1 24.5-34.5 SEC D-Dimer, Quantitative 2.56 H 0.0-0.49 mg/L FEU Troponin I High Sensitivity 5 </=54 ng/L C-Reactive Protein High Sensitivity 0.34 <1.0 mg/dL Thyroid Stimulating Hormone (TSH) 1.48 0.55-4.78 uIU/mL White Blood Count 7.2 4.4-10.8 10^3/uL Red Blood Count 5.18 4.5-5.90 10^6/uL Hemoglobin 14.0 13.5-17.5 g/dL Hematocrit 43.1 41.0-53.0 % Mean Corpuscular Volume 83.3 80.0-100.0 fL Mean Corpuscular Hemoglobin 27.1 L 28.0-32.0 pg Mean Corpuscular Hemoglobin Concent 32.6 32.0-36.0 g/dL Red Cell Distribution Width 15.1 H 11.8-14.3 % Platelet Count 266 140-450 10^3/uL Mean Platelet Volume 7.7 6.9-10.8 fL Neutrophils (%) (Auto) 64.1 37.0-80.0 % Lymphocytes (%) (Auto) 27.6 10.0-50.0 % Monocytes (%) (Auto) 6.0 0.0-12.0 % Eosinophils (%) (Auto) 1.9 0.0-7.0 % Basophils (%) (Auto) 0.4 0.0-2.0 % Neutrophils # (Auto) 4.6 1.6-8.6 10 ^3/uL Lymphocytes # (Auto) 2.0 0.4-5.4 10 ^3/uL Monocytes # (Auto) 0.4 0-1.3 10 ^3/uL Eosinophils # (Auto) 0.1 0-0.8 10 ^3/uL Basophils # (Auto) 0 0-0.2 10 ^3/uL Nucleated Red Blood Cells 0.1 % Sodium Level 138 136-145 mmol/L Potassium Level 3.9 3.5-5.1 mmol/L Chloride Level 104 98-107 mmol/L Carbon Dioxide Level 27 20-31 mmol/L Anion Gap 7 5-15 Blood Urea Nitrogen 9 9-23 mg/dL Creatinine 0.84 0.700-1.30 mg/dL Glomerular Filtration Rate Calc 104 >90 mL/min BUN/Creatinine Ratio 10.7 10.0-20.0 Serum Glucose 211 H 74-106 mg/dL Calcium Level 9.9 8.7-10.4 mg/dL Magnesium Level 1.7 1.6-2.6 mg/dL Total Bilirubin 0.5 0.2-1.0 mg/dL Aspartate Amino Transferase (AST) 11 L 13-40 U/L Alanine Aminotransferase (ALT) 35 7-40 U/L Alkaline Phosphatase 97 46-116 U/L Total Protein 8.0 5.7-8.2 g/dL Albumin 4.6 3.2-4.8 g/dL CTA Chest with intravenous contrast Findings: Pulmonary artery: No pulmonary embolism Lower neck: Normal thyroid. Lungs: No focal consolidation, pleural effusion or pneumothorax. Atelectasis and scarring in the lung bases. Heart/Vascular Structures: Normal heart size. Trace pericardial effusion. Moderate coronary artery calcifications. Lymph Nodes: No adenopathy Pleura: No pleural effusion or significant pneumothorax. Musculoskeletal: No acute osseous abnormality. Soft tissues: Normal. Upper abdomen: Limited portions of the upper abdomen are unremarkable. IMPRESSION: 1. No pulmonary embolism. 2. No acute thoracic finding. CHEST RADIOGRAPH FINDINGS: Lines and Tubes: Median sternotomy. Lungs: Clear Pleura: No effusion. No pneumothorax. Cardiomediastinal contours: Unremarkable Bones: Unremarkable IMPRESSION: No evidence of acute disease. Assessment/Plan Assessment/Plan Assessment: ACS (acute coronary syndrome), Recent CABG 03/19/2024, Diabetes, Hyperlipidemia, Hypertension, Plan: Admit to Tele, Cardiology consult, Left shoulder X-ray, Left upper extremity ultrasound, Accu checks Q AC&HS with sliding, A1c Home medications reconciled, Plan discussed with: Patient My Orders Orders - ALLEN JOHNSTON ACCOUNT ADMINISTRATOR Procedure Category Date Status Time Admit ADMIT 04/20/24 Transmitted 16:11 Code Status CODE 04/20/24 Transmitted 16:11 2 Gm Sodium Diet DIET 04/20/24 Transmitted Dinner Sodium Chloride Lock PHA 04/20/24 Logged (Saline Lock Ns) 22:00 Hydrocodone-Acet PHA 04/20/24 Logged 5/325mg Tab ([place] 16:15 Ondansetron Hcl PHA 04/20/24 Logged (Zofran) 16:15 Docusate Sodium PHA 04/20/24 Logged Capsule (Colace 16:15 Complete Blood Count LAB 04/21/24 Verified 04:00 Comprehensive LAB 04/21/24 Verified Metabolic Panel 04:00 Condition: Serious JEAN 04/20/24 In Process 16:11 Acetaminophen Tablet PHA 04/20/24 Logged (Tylenol Tablet) 16:15 Morphine Sulfate PHA 04/20/24 Logged Injection 16:15 Nitroglycerin PHA 04/20/24 Logged Sublingual (Ntrostat 16:15 Morphine Sulfate PHA 04/20/24 Logged Injection 16:15 Stat Ekg For Chest [facility] 04/20/24 In Process Pain 16:11 Notify Of Changes [facility] 04/20/24 In Process From Base 16:11 Executive Director For [facility] 04/20/24 In Process 24 Hours 16:11 Emergency Dysrhythmia [facility] 04/20/24 In Process Protocol 16:11 Rhythm Strips Once [facility] 04/20/24 In Process Every Shift 16:11 Oxygen By Nasal RT 04/20/24 Transmitted Cannula 16:11 L Shoulder 2+ View XY 04/20/24 Logged Xray 16:11 Lt Upper Dvt US 04/20/24 Logged 16:11 Aspirin Enteric PHA 04/21/24 Logged Coated Tablet 10:00 Clopidogrel Bisulfate PHA 04/21/24 Logged (Plavix) 10:00 Losartan Tablet PHA 04/21/24 Logged (Cozaar Tablet) 10:00 Metoprolol Xl PHA 04/21/24 Logged Succinate (Toprol Xl) 10:00 (Nf) Atorvastatin PHA 04/21/24 Logged Calcium (Lipitor) 10:00 * Cardiology Consult CONS 04/20/24 Transmitted 16:20 Glucose Blood PHA 04/20/24 Transmitted (Accu-Chek Comfort 17:00 Bedtime Insulin Scale PHA 04/20/24 Transmitted 22:00 Moderate Insulin Ss PHA 04/20/24 Transmitted 17:00 Dextrose 50% Syringe PHA 04/20/24 Transmitted 16:30 Date of Service: Apr 20, 2024 Billing Provider: ALLEN JOHNSTON Common Visit Codes: [id number] INP/OBS CARE (MOD) ALLEN JOHNSTON Apr 20, 2024 16:41
--- NOTE | 2024-04-20 16:52 | DVH ---
XY L SHOULDER 2+ VIEW XRAY INDICATION: Left shoulder pain TECHNICAL DATA: 3 views were obtained of the left shoulder. COMPARISON: XY L SHOULDER 2+ VIEW XRAY on DOS: 03/04/24, XY R FOOT 3 VIEW XRAY on DOS: 07/02/23 FINDINGS: Normal mineralization and alignment. Moderate degenerative joint space narrowing of the acromioclavic ular joint. Mild osteophyte formation of the glenohumeral joint. There is no acute fracture. Overlyin g soft tissues are intact. Prior median sternotomy and CABG. Visualized left lung is clear. IMPRESSION: 1. No acute fracture or dislocation of the left shoulder. 2. 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
[2024-04-20] MEDS: ACCU-CHEK COMFORT CURVE STRIP VI SCH (17:08)
[2024-04-20] MEDS: InsuLIN REG 1unit/0.01ml Soln (100units/ml) SC SCH ×2 (17:15→22:45)
[2024-04-20] MEDS: MORPHINE SULFATE INJ 2 MG/ml SYRG IV PRN (17:30)
[2024-04-20] MEDS: ONDANSETRON HCL 4 MG/2 ML VIAL IV ONE (17:30)
[2024-04-20] MEDS: MORPHINE SULFATE 4 MG/ML SYR/VIAL IV ONE (17:31)
--- NOTE | 2024-04-20 17:40 | DVH ---
LEFTl lower extremity venous duplex Clinical History: R/O DVT Comparison: US RT LOWER DVT on DOS: 07/05/23, US RT LOWER DVT on DOS: 07/02/23 Technique: Duplex Doppler evaluation of the deep venous systems of both lower extremities from the common femora l veins to the popliteal veins including color Doppler and spectral/pulsed waveform analysis was perf ormed. Findings: LEFT SIDE: The common femoral vein demonstrates appropriate compressibility and waveform variability. There is compressibility/patency of the great saphenous vein at the proximal thigh. The femoral vein demonstrates appropriate compressibility and waveform variability. The deep femoral vein demonstrates appropriate compressibility and waveform variability. The popliteal vein demonstrates appropriate compressibility and waveform variability. There is normal compressibility at the tibioperoneal trunk. Impression: 1. No left femoropopliteal venous thrombosis. HS:Y
[2024-04-20 21:03] VITALS: PULSE 58; RESP 16; O2SAT 100
[2024-04-20] MEDS: SODIUM CHLOR 0.9% PF (SALINE LOCK) 10ML VIAL/SYR IV SCH (22:04)
[2024-04-20] MEDS: ATORVASTATIN 20 MG TAB PO SCH (22:45)
--- NOTE | 2024-04-20 23:26 | DVHINCON2 ---
Date of service: Apr 20, 2024 Referring Physician Ethel Reason for Consultation Chest pain History of Present Illness This is a 54 year old male with a PMH of DM, High Lipids, HTN who presented to the ED with complaint of chest pain. Patient endorses left arm burning pain that radiates into his left chest, back, neck, and head for the past week with associated abdominal pain. Patient relays that he had a recent open heart surgery [place] month ago on 03/19/24. 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 D-dimer 2.56. TROP x2 is negative. Chest x-ray showd NAD. CTA chest showed no evidence for PE. LLE venous duplex revealed no evidence of DVT. Left shoulder x-ray revealed moderate acromioclavicular joint osteoarthritis and mild glenohumeral arthrosis. Patient was admitted to the hospital. I am asked to consult on this patient. Family History: Patient reports no known family medical history. Allergies: Coded Allergies: NO KNOWN ALLERGIES (Unverified , 07/02/23) Home Meds Active Scripts Metoprolol Succinate (Toprol Xl) 50 Mg Tab, 25 MG PO DAILY for 90 Days, #45 TAB 1 Refill Prov:JAMES RODRIGUEZ MD 03/07/24 Losartan Potassium (Losartan Potassium) 50 Mg Tab, 25 MG PO DAILY for 90 Days, #45 TAB 1 Refill Prov:JAMES RODRIGUEZ MD 03/07/24 Clopidogrel Bisulfate (CLOPIDOGREL) 75 Mg Tab, 75 MG PO DAILY for 90 Days, #90 TAB 1 Refill Prov:JAMES RODRIGUEZ MD 03/07/24 Aspirin (Aspirin Low Dose) 81 Mg Tab, 81 MG PO DAILY for 90 Days, #90 TAB 1 Refill Prov:JAMES RODRIGUEZ MD 03/07/24 Reported Medications Naproxen (Naproxen Ec) 500 Mg Tab, 500 MG PO, TAB 03/02/24 Atorvastatin Calcium (Lipitor) 40 Mg Tab, 1 TAB PO DAILY 07/07/23 Gabapentin (Gabapentin) 100 Mg Cap, 6 CAP PO TID 07/07/23 Metformin Hydrochloride (Metformin Hcl) 500 Mg Tab, 1 TAB PO DAILY 07/06/23 Current Medications Current Medications Medications (Trade) Dose Ordered Sig/Ingrid Route PRN Reason Start Time Stop Time Status Last Admin Sodium Chloride (Saline Lock Ns) 10 ml Q8HR IV 04/20/24 22:00 Acetaminophen/ Hydrocodone Bitart ([place] 5/325MG Tab) 1 tab Q4HP PRN PO MODERATE PAIN (4-6 PAIN SCALE) 04/20/24 16:15 Ondansetron HCl (Zofran) 4 mg Q4HP PRN IV NAUSEA / VOMITING 04/20/24 16:15 Docusate Sodium (Colace Capsule) 100 mg BIDPRN PRN PO FOR CONSTIPATION 04/20/24 16:15 Acetaminophen (Tylenol Tablet) 650 mg Q6HP PRN PO PAIN SCALE 1-3 OR TEMP>100.4 04/20/24 16:15 Morphine Sulfate 2 mg Q4HPRN PRN IV SEVERE PAIN (7-10 PAIN SCALE) 04/20/24 16:15 04/20/24 17:30 Nitroglycerin (Ntrostat Sublingual) 0.4 mg Q5MINP PRN SL FOR CHEST PAIN 04/20/24 16:15 Morphine Sulfate 2 mg Q30M PRN IV FOR CHEST PAIN 04/20/24 16:15 Aspirin (Ecotrin Enteric Coated Tablet) 81 mg DAILY PO 04/21/24 10:00 Clopidogrel Bisulfate (Plavix) 75 mg DAILY PO 04/21/24 10:00 Losartan Potassium (Cozaar Tablet) 25 mg DAILY PO 04/21/24 10:00 Metoprolol Succinate (Toprol Xl) 25 mg DAILY PO 04/21/24 10:00 Atorvastatin Calcium (Lipitor) 40 mg HS PO 04/20/24 22:00 Diagnostic Test (Pha) (Accu-Chek Comfort Curve T) 1 strip ACHS 04/20/24 17:00 04/20/24 17:08 Insulin Human Regular (InsuLIN R) HS SC 04/20/24 22:00 Insulin Human Regular (InsuLIN R) AC SC 04/20/24 17:00 04/20/24 17:15 Dextrose 50 ml UD PRN IV Blood Sugar LESS THAN 60 04/20/24 16:30 Review of Systems Constitutional: denies: chills, diaphoresis, fatigue, fever, malaise, sweats, weakness, others EENTM: denies: blurred vision, double vision, ear bleeding, ear discharge, ear drainage, ear pain, ear ringing, eye pain, eye redness, hearing loss, mouth pain, mouth swelling, nasal discharge, nose bleeding, nose congestion, nose pain, photophobia, tearing, throat pain, throat swelling, voice changes, others Respiratory: denies: cough, hemoptysis, orthopnea, SOB at rest, shortness of breath, SOB with excertion, stridor, wheezing, others Cardiovascular: reports: chest pain, left arm pain; denies: dizzy spells, diaphoresis, Dyspnea on exertion, edema, irregular heart beat, lightheadedness, palpitations, PND, syncope, others Gastrointestinal: reports: abdominal pain; denies: abdomen distended, blood streaked bowels, constipated, diarrhea, dysphagia, difficulty swallowing, hematemesis, melena, nausea, poor appetite, poor fluid intake, rectal bleeding, rectal pain, vomiting, others Genitourinary: denies: burning, dysuria, flank pain, frequency, hematuria, incontinence, penile discharge, penile sore, pain, testicle pain, testicle swelling, urgency, others Neurological: reports: headache; denies: dizziness, fainting, left sided numbness, left sided weakness, numbness, paresthesia, pre-existing deficit, right sided numbness, right sided weakness, seizure, speech problems, tingling, tremors, weakness, others Musculoskeletal: reports: back pain, neck pain; denies: gout, joint pain, joint swelling, muscle pain, muscle stiffness, others Integumetry: denies: bruises, change in color, change in hair/nails, dryness, laceration, lesions, lumps, rash, wounds, others Allergic/Immunocompromised: denies: Difficulty Healing, Frequent Infections, Hives, Itching, others Hematologic/Lymphatic: denies: anemia, blood clots, easy bleeding, easy bruising, swollen glands, others Endocrine: denies: excessive hunger, excessive sweating, excessive thirst, excessive urination, flushing, intolerance to cold, intolerance to heat, unexplained weight gain, unexplained weight loss, others Psychiatric: denies: anxiety, bipolar disorder, depression, hopeless, panic disorder, schizophrenia, sleepless, suicidal, others All Other Systems: Reviewed and Negative Vital Signs Vital Signs Date Time Temp Pulse Resp B/P (MAP) Pulse Ox O2 Delivery O2 Flow Rate FiO2 04/20/24 17:30 58 18 114/58 04/20/24 11:42 97.9 99 97.9 04/20/24 10:26 Room Air Physical Exam GENERAL: Awake, alert, oriented. LUNGS: Clear. CARDIOVASCULAR: Heart sounds are good. ABDOMEN: Soft. Labs/Diagnostic Data Labs Test 04/20/24 17:14 04/20/24 10:33 04/20/24 10:11 04/20/24 09:19 Range/Units POC Glucose 151 H 70-106 mg/dl Urine Color Yellow Yellow Urine Clarity Clear Clear Urine pH 5.5 5.0-9.0 Urine Specific [place] 1.028 1.001-1.035 Urine Protein Trace H Negative Urine Ketones Negative Negative Urine Blood Negative Negative /uL Urine Nitrite Negative Negative Urine Bilirubin Negative Negative Urine Urobilinogen Normal Negative mg/dL Urine Leukocyte Esterase Negative Negative /uL Urine RBC 1 0 - 3 /hpf Urine WBC 1 0 - 3 /hpf Urine Squamous Epithelial Cells Few <5 /hpf Urine Bacteria None seen None Seen /hpf Urine Mucus Few None Seen Urine Glucose Normal Normal mg/dL Prothrombin Time 11.5 9.3-11.8 sec Prothrombin Time INR 1.09 0.9-1.15 Activated Partial Thromboplast Time 26.1 24.5-34.5 SEC D-Dimer, Quantitative 2.56 H 0.0-0.49 mg/L FEU Troponin I High Sensitivity 5 </=54 ng/L C-Reactive Protein High Sensitivity 0.34 <1.0 mg/dL Thyroid Stimulating Hormone (TSH) 1.48 0.55-4.78 uIU/mL White Blood Count 7.2 4.4-10.8 10^3/uL Red Blood Count 5.18 4.5-5.90 10^6/uL Hemoglobin 14.0 13.5-17.5 g/dL Hematocrit 43.1 41.0-53.0 % Mean Corpuscular Volume 83.3 80.0-100.0 fL Mean Corpuscular Hemoglobin 27.1 L 28.0-32.0 pg Mean Corpuscular Hemoglobin Concent 32.6 32.0-36.0 g/dL Red Cell Distribution Width 15.1 H 11.8-14.3 % Platelet Count 266 140-450 10^3/uL Mean Platelet Volume 7.7 6.9-10.8 fL Neutrophils (%) (Auto) 64.1 37.0-80.0 % Lymphocytes (%) (Auto) 27.6 10.0-50.0 % Monocytes (%) (Auto) 6.0 0.0-12.0 % Eosinophils (%) (Auto) 1.9 0.0-7.0 % Basophils (%) (Auto) 0.4 0.0-2.0 % Neutrophils # (Auto) 4.6 1.6-8.6 10 ^3/uL Lymphocytes # (Auto) 2.0 0.4-5.4 10 ^3/uL Monocytes # (Auto) 0.4 0-1.3 10 ^3/uL Eosinophils # (Auto) 0.1 0-0.8 10 ^3/uL Basophils # (Auto) 0 0-0.2 10 ^3/uL Nucleated Red Blood Cells 0.1 % Sodium Level 138 136-145 mmol/L Potassium Level 3.9 3.5-5.1 mmol/L Chloride Level 104 98-107 mmol/L Carbon Dioxide Level 27 20-31 mmol/L Anion Gap 7 5-15 Blood Urea Nitrogen 9 9-23 mg/dL Creatinine 0.84 0.700-1.30 mg/dL Glomerular Filtration Rate Calc 104 >90 mL/min BUN/Creatinine Ratio 10.7 10.0-20.0 Serum Glucose 211 H 74-106 mg/dL Calcium Level 9.9 8.7-10.4 mg/dL Magnesium Level 1.7 1.6-2.6 mg/dL Total Bilirubin 0.5 0.2-1.0 mg/dL Aspartate Amino Transferase (AST) 11 L 13-40 U/L Alanine Aminotransferase (ALT) 35 7-40 U/L Alkaline Phosphatase 97 46-116 U/L Total Protein 8.0 5.7-8.2 g/dL Albumin 4.6 3.2-4.8 g/dL Assessment Chest pain. 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 Diabetes. Hyperlipidemia. Hypertension. Plan/Recommendation I agree with your ongoing assessment and care of plan. Morphine and [place] for pain management. Aspirin, Lipitor, Metoprolol, Plavix. Losartan. Nitro SL. Additional plan as per the hospital course. A total of 45 minutes was spent reviewing the patient record, examining the patient, making a diagnostic and therapeutic plan, discussing this plan with medical personnel, following up on diagnostic studies and following the patient for clinical stability excluding any and all procedures. At least 50% of this time was spent in direct, [id number] contact. Plan discussed with: Patient WILNER ROSS MD Apr 20, 2024 18:09
[2024-04-21] VITALS (9 sets, daily range): BP systolic 105–131; BP diastolic 61–78; PULSE 62–97; RESP 18–20; TEMP 97.3–98.4; O2SAT 95–98
[2024-04-21 07:05] LABS: Basophils # (auto) 0 10 ^3/uL (0-0.2); Basophils % (auto) 0.3 % (0.0-2.0); Eosinophils # (auto) 0.3 10 ^3/uL (0-0.8); Eosinophils % (auto) 3.9 % (0.0-7.0); Hematocrit 37.6 % (41.0-53.0); Hemoglobin 12.7 g/dL (13.5-17.5); Lymphocytes # (auto) 2.1 10 ^3/uL (0.4-5.4); Lymphocytes % (auto) 26.9 % (10.0-50.0); Mean Corpuscular Hemoglobin 27.6 pg (28.0-32.0); Mean Corpuscular Hgb Conc. 33.6 g/dL (32.0-36.0); Mean Corpuscular Volume 81.9 fL (80.0-100.0); Monocytes # (auto) 0.5 10 ^3/uL (0-1.3); Monocytes % (auto) 6.6 % (0.0-12.0); Neutrophils % (auto) 62.3 % (37.0-80.0); Nucleated Red Blood Cells % 0.1 %; Platelet Count (auto) 227 10^3/uL (140-450); Red Blood Cells 4.59 10^6/uL (4.5-5.90); Red Cell Distribution Width 14.9 % (11.8-14.3)
[2024-04-21 07:16] LABS: Alanine Aminotransferase 29 U/L (7-40); Alkaline Phosphatase 81 U/L (46-116); Anion Gap 8 (5-15); BUN/Creatinine Ratio 16.2 (10.0-20.0); Blood Urea Nitrogen 11 mg/dL (9-23); Calcium 9.3 mg/dL (8.7-10.4); Carbon Dioxide 24 mmol/L (20-31); Chloride 106 mmol/L (98-107); Glucose 180 mg/dL (74-106); Sodium 138 mmol/L (136-145)
[2024-04-21 07:17] LABS: Albumin 4.1 g/dL (3.2-4.8); Aspartate Aminotransferase 12 U/L (13-40); Bilirubin, Total 0.5 mg/dL (0.2-1.0); Total Protein 6.8 g/dL (5.7-8.2)
[2024-04-21] MEDS: METOPROLOL SUCCINATE XL 50 MG TAB PO SCH (10:21)
[2024-04-21] MEDS: ASPirin-EC 81 mg tab PO SCH (10:22)
[2024-04-21] MEDS: LOSARTAN POTASSIUM 50 MG TAB PO SCH (10:22)
[2024-04-21] MEDS: CLOPIDOGREL BISULFATE 75 MG TAB PO SCH (10:22)
[2024-04-21] MEDS: HYDROcodone-ACET 5/325MG TAB PO PRN (10:27)
--- NOTE | 2024-04-21 13:39 | DVHPN2 ---
Reviewed: Care Plan, H&P, Labs, Medications, Previous Orders, Radiology Changes from previous H/P or p: No Changes Eyes: No Pain, No Vision change, No Conjunctivae inflammation, No Eyelid inflammation, No Other, No Redness ENT: No Ear pain, No Ear discharge, No Nose pain, No Nose discharge, No Nose congestion, No Mouth pain, No Mouth swelling, No Throat pain, No Throat swelling, No Other Cardiovascular: No Chest Pain, No Palpitations, No Orthopnea, No Paroxysmal Noc. Dyspnea, No Edema, No Lt Headedness, No Other Respiratory: No Cough, No Dry, No Shortness of breath, No SOB with excertion, No Wheezing, No Hemoptysis, No Pleuritic Pain, No Sputum, No Other Gastrointestinal: No Nausea, No Vomiting, No Abdominal Pain, No Diarrhea, No Constipation, No Melena, No Hematochezia, No Other Genitourinary: No Dysuria, No Frequency, No Incontinence, No Hematuria, No Retention, No Other Musculoskeletal: No other, No neck pain; shoulder pain (left, radiates to back and chest. Having difficulty moving left arm); No arm pain, No back pain, No hand pain, No leg pain, No foot pain Skin: No Rash, No Lesions, No Jaundice, No Bruising, No Other Objective Vitals Vital Signs Date Time Temp Pulse Resp B/P (MAP) Pulse Ox O2 Delivery O2 Flow Rate FiO2 04/21/24 10:22 111/61 04/21/24 10:21 67 04/21/24 09:00 98.0 20 95 98.0 04/21/24 08:00 Room Air* 0 21 Intake/Output Intake and Output 04/21/24 07:00 Intake Total 0 ml Output Total 0 ml Balance 0 ml Intake Oral 0 ml Output Urine Total 0 ml Medications Current Medications Medications Dose Ordered Sig/Ingrid Route Start Time Stop Time Status Last Admin Dose Admin Sodium Chloride 10 ml Q8HR IV 04/20/24 22:00 04/21/24 04:54 10 ML Acetaminophen/ Hydrocodone Bitart 1 tab Q4HP PRN PO 04/20/24 16:15 04/21/24 10:27 1 TAB Ondansetron HCl 4 mg Q4HP PRN IV 04/20/24 16:15 Docusate Sodium 100 mg BIDPRN PRN PO 04/20/24 16:15 Acetaminophen 650 mg Q6HP PRN PO 04/20/24 16:15 Morphine Sulfate 2 mg Q4HPRN PRN IV 04/20/24 16:15 04/21/24 04:54 2 MG Nitroglycerin 0.4 mg Q5MINP PRN SL 04/20/24 16:15 Morphine Sulfate 2 mg Q30M PRN IV 04/20/24 16:15 Aspirin 81 mg DAILY PO 04/21/24 10:00 04/21/24 10:22 81 MG Clopidogrel Bisulfate 75 mg DAILY PO 04/21/24 10:00 04/21/24 10:22 75 MG Losartan Potassium 25 mg DAILY PO 04/21/24 10:00 04/21/24 10:22 25 MG Metoprolol Succinate 25 mg DAILY PO 04/21/24 10:00 04/21/24 10:21 25 MG Atorvastatin Calcium 40 mg HS PO 04/20/24 22:00 Diagnostic Test (Pha) 1 strip ACHS 04/20/24 17:00 04/21/24 10:43 1 STRIP Insulin Human Regular HS SC 04/20/24 22:00 Insulin Human Regular AC SC 04/20/24 17:00 04/21/24 10:43 6 UNITS Dextrose 50 ml UD PRN IV 04/20/24 16:30 Laboratory Results Laboratory Tests 04/21/24 06:30 Chemistry Test 04/21/24 06:30 Albumin 4.1 g/dL (3.2-4.8) Calcium Level 9.3 mg/dL (8.7-10.4) Total Protein 6.8 g/dL (5.7-8.2) LFT Test 04/21/24 06:30 Alanine Aminotransferase (ALT) 29 U/L (7-40) Alkaline Phosphatase 81 U/L (46-116) Aspartate Amino Transferase (AST) 12 U/L (13-40) L Total Bilirubin 0.5 mg/dL (0.2-1.0) HgA1c, TSH Test 04/21/24 06:30 Hemoglobin A1c 7.9 % A1C (<5.7) H Urinalysis Test 04/20/24 10:33 Urine Color Yellow (Yellow) Urine Clarity Clear (Clear) Urine pH 5.5 (5.0-9.0) Urine Specific [place] 1.028 (1.001-1.035) Urine Protein Trace (Negative) H Urine Ketones Negative (Negative) Urine Blood Negative /uL (Negative) Urine Nitrite Negative (Negative) Urine Bilirubin Negative (Negative) Urine Urobilinogen Normal mg/dL (Negative) Urine Leukocyte Esterase Negative /uL (Negative) Urine RBC 1 /hpf (0 - 3) Urine WBC 1 /hpf (0 - 3) Urine Squamous Epithelial Cells Few /hpf (<5) Urine Bacteria None seen /hpf (None Seen) Urine Mucus Few (None Seen) Urine Glucose Normal mg/dL (Normal) Labs and/or images reviewed: Labs reviewed by me, Image(s) reviewed by me Assessment/Plan Assessment/Plan Chest pain. Troponin negative x3, cardiology consult by Dr. Page appreciated Recent CABG 03/19/2024. [place] Diabetes. Hyperlipidemia. Hypertension. Elevated D-dimer 2.56 DVT ruled out PE ruled out Time spent 65 minutes Advanced care planning 20 minutes Patient is full code Acute left shoulder and left arm pain: Rule out stroke, rule out arthritis of the shoulder, CT head CT left shoulder CT neck ordered Plan discussed with: Patient Date of Service: Apr 21, 2024 Billing Provider: KARLEE DOMINGUEZ MD Common Visit Codes: [id number] INP/OBS CARE(HIGH) Secondary Visit Codes: 97115-[id number] CARE PLAN 30 MINUTES KARLEE DOMINGUEZ MD Apr 21, 2024 13:39
--- NOTE | 2024-04-21 14:25 | DVH ---
EXAM: CT Head Without Intravenous Contrast CLINICAL INDICATION: Acute left hand weakness ruled out CVA TECHNIQUE: Axial computed tomography images of the head/brain without intravenous contrast. This CT exam was performed using one or more of the following dose reduction techniques: automated exposure control, adjustment of the mA and/or kV according to patient size, and/or use of iterative reconstru ction technique. RADIATION DOSE: CTDlvol= 55 mGy, DLP= 875.34 mGy-cm COMPARISON: CT HEAD WITHOUT CONTRAST on DOS: 03/02/24 FINDINGS: BRAIN AND EXTRA-AXIAL SPACES: Unremarkable. No significant white matter disease. No acute intracra nial hemorrhage, midline shift or mass effect. BONES/JOINTS: Unremarkable. No acute fracture. SOFT TISSUES: Small parietal scalp hematoma. SINUSES: Unremarkable as visualized. No acute sinusitis. MASTOID AIR CELLS: Unremarkable as visualized. No mastoid effusion. OTHER FINDINGS: . . IMPRESSION: 1. No acute intracranial hemorrhage, midline shift or mass effect. 2. Small parietal scalp hematoma. HS:Y
--- NOTE | 2024-04-21 14:52 | DVH ---
EXAM: CT CERVICAL WITHOUT CONTRAST INDICATION: Acute left upper arm pain EXAM DATE: 04/21/2024 01:51 PM COMPARISON: CT HEAD WITHOUT CONTRAST on DOS: 04/21/24, CT HEAD WITHOUT CONTRAST on DOS: 03/02/24, CT C T R FOOT WO CONTRAST on DOS: 07/05/23 TECHNIQUE: Multiple axial CT images of the cervical spine were obtained using bone algorithm. Axial a nd coronal reformatting was done. Bone and soft tissue windows were reviewed. Radiation Dose Information: CT Dose: CTDI volume is 25.95 mGy. Dose-length product is 543.8 mGy*cm Findings: There is no evidence of an acute fracture or spondylolisthesis. The vertebral body heights are well-m aintained. The craniocervical junction and dens are intact. Multilevel marginal vertebral body endpla te reactive osteophytosis. No evidence of degenerative disc disease. No neuroforaminal narrowing. No spinal canal stenosis. There is flattening of the cervical lordosis. The thyroid gland is unremarkable. The lung apices demonstrate no acute abnormality. The paraspinal a nd neck soft tissues appear within normal limits. C2-3: Normal C3-4: Normal C4-5: Normal C5-6: Normal C6-7: Normal C7-T1: Normal Impression: 1. No evidence of an acute fracture. 2. Mild to moderate degenerative changes of the cervical spine. 3. Straightening of the cervical lordosis which may be positional versus muscle spasm.
--- NOTE | 2024-04-21 15:08 | DVH ---
EXAM: CT CT L SHOULDER WO CONTRAST INDICATION: Acute pain left shoulder EXAM DATE: 04/21/2024 01:55 PM COMPARISON: CT HEAD WITHOUT CONTRAST on DOS: 04/21/24, CT CT ANGIO CHEST CONTRAST on DOS: 04/20/24, C T HEAD WITHOUT CONTRAST on DOS: 03/02/24 TECHNIQUE: Multiple axial CT images of the left shoulder were obtained using bone algorithm. Axial an d coronal reformatting was done. Bone and soft tissue windows were reviewed. Radiation Dose Information: CT Dose: CTDI volume is 30.02 mGy. Dose-length product is 712.61 mGy*cm Findings: There is no evidence of an acute fracture, dislocation, blastic, or lytic lesions. No radiopaque foreign bodies. No joint effusion or superficial soft tissue abnormalities. Impression: 1. No acute osseous abnormality. 2. Consider MR for further evaluation if symptoms persist or worsen.
--- NOTE | 2024-04-21 21:41 | DVHPN2 ---
Progress Note - Dictate Date Seen: Apr 21, 2024 Medical Necessity Reason Pt with a Central, PICC or Fol: No Subjective Patient was seen and evaluated in follow up. Patient is complaining of left shoulder/arm pain. CT C-spine shows no evidence of an acute fracture. Mild to moderate degenerative changes of the cervical spine. Straightening of the cervical lordosis which may be positional versus muscle spasm. CT head shows no acute intracranial hemorrhage, midline shift or mass effect. Small parietal scalp hematoma. CT L-spine is WNL. vital signs Vital Sign Date Time Temp Pulse Resp B/P (MAP) Pulse Ox O2 Delivery O2 Flow Rate FiO2 04/21/24 10:22 111/61 04/21/24 10:21 67 04/21/24 09:00 98.0 20 95 98.0 04/21/24 08:00 Room Air* 0 21 Total Intake and Output 04/20/24 04/20/24 04/21/24 15:00 23:00 07:00 Intake Total 0 ml Output Total 0 ml Balance 0 ml medications Current Medications Medications Dose Ordered Sig/Ingrid Route Start Time Stop Time Status Last Admin Dose Admin Sodium Chloride 10 ml Q8HR IV 04/20/24 22:00 04/21/24 04:54 10 ML Acetaminophen/ Hydrocodone Bitart 1 tab Q4HP PRN PO 04/20/24 16:15 04/21/24 10:27 1 TAB Ondansetron HCl 4 mg Q4HP PRN IV 04/20/24 16:15 Docusate Sodium 100 mg BIDPRN PRN PO 04/20/24 16:15 Acetaminophen 650 mg Q6HP PRN PO 04/20/24 16:15 Morphine Sulfate 2 mg Q4HPRN PRN IV 04/20/24 16:15 04/21/24 04:54 2 MG Nitroglycerin 0.4 mg Q5MINP PRN SL 04/20/24 16:15 Morphine Sulfate 2 mg Q30M PRN IV 04/20/24 16:15 Aspirin 81 mg DAILY PO 04/21/24 10:00 04/21/24 10:22 81 MG Clopidogrel Bisulfate 75 mg DAILY PO 04/21/24 10:00 04/21/24 10:22 75 MG Losartan Potassium 25 mg DAILY PO 04/21/24 10:00 04/21/24 10:22 25 MG Metoprolol Succinate 25 mg DAILY PO 04/21/24 10:00 04/21/24 10:21 25 MG Atorvastatin Calcium 40 mg HS PO 04/20/24 22:00 Diagnostic Test (Pha) 1 strip ACHS 04/20/24 17:00 04/21/24 10:43 1 STRIP Insulin Human Regular HS SC 04/20/24 22:00 Insulin Human Regular AC SC 04/20/24 17:00 04/21/24 10:43 6 UNITS Dextrose 50 ml UD PRN IV 04/20/24 16:30 objective GENERAL: Awake, alert, oriented. LUNGS: Clear. CARDIOVASCULAR: Heart sounds are good. ABDOMEN: Soft. laboratory and microbiology Laboratory Tests 04/21/24 06:30 Test 04/21/24 06:30 Range/Units Serum Glucose 180 H 74-106 mg/dL Problem List Chest pain. 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 Diabetes. Hyperlipidemia. Hypertension. Assessment/Plan Continued all current supportive medical care. Morphine and [place] for pain management. Aspirin, Lipitor, Metoprolol, Plavix. Losartan. Additional plan as per the hospital course. Plan discussed with: Patient WILNER ROSS MD Apr 21, 2024 13:58
[2024-04-22 01:00] VITALS: BP 102/71; PULSE 73; RESP 18; TEMP 97.2; O2SAT 96
--- NOTE | 2024-04-22 03:40 | ECG ---
[facility] Test Date: 2024-04-20 Test Time: 09:07:53 Pat Name: CHANTAL RICHEY Department: ER Room: 0223T B Gender: M [employer] Helper: [place] : 1970 Requested By: DENINS ORTEGA Order Number: [id number] Reading MD: Paxton Vides Measurements Intervals [place] Rate: 72 P: 74 IA: 140 QRS: 99 QRSD: 100 T: 56 QT: 407 QTc: 446 Interpretive Statements Sinus rhythm Consider right ventricular hypertrophy Consider inferior infarct Abnormal T, consider ischemia, anterior leads Baseline wander in lead(s) I,III,aVL Electronically Signed On 04-24-2024 8:16:27 PST by Paxton Vides Please click the below link to view image of tracing.
[2024-04-22 05:00] VITALS: BP 131/63; PULSE 70; RESP 18; TEMP 98; O2SAT 96
[2024-04-22 08:00] VITALS: PULSE 70; PULSE 71; RESP 20; O2SAT 95
[2024-04-22 09:00] VITALS: BP 101/57; PULSE 71; RESP 20; TEMP 98.5; O2SAT 95
--- NOTE | 2024-04-22 09:36 | DVHPN2 ---
Reviewed: Care Plan, H&P, Labs, Medications, Previous Orders, Radiology Changes from previous H/P or p: No Changes Eyes: No Pain, No Vision change, No Conjunctivae inflammation, No Eyelid inflammation, No Other, No Redness ENT: No Ear pain, No Ear discharge, No Nose pain, No Nose discharge, No Nose congestion, No Mouth pain, No Mouth swelling, No Throat pain, No Throat swelling, No Other Cardiovascular: No Chest Pain, No Palpitations, No Orthopnea, No Paroxysmal Noc. Dyspnea, No Edema, No Lt Headedness, No Other Respiratory: No Cough, No Dry, No Shortness of breath, No SOB with excertion, No Wheezing, No Hemoptysis, No Pleuritic Pain, No Sputum, No Other Gastrointestinal: No Nausea, No Vomiting, No Abdominal Pain, No Diarrhea, No Constipation, No Melena, No Hematochezia, No Other Genitourinary: No Dysuria, No Frequency, No Incontinence, No Hematuria, No Retention, No Other Musculoskeletal: No other, No neck pain; shoulder pain (left, radiates to back and chest. Having difficulty moving left arm); No arm pain, No back pain, No hand pain, No leg pain, No foot pain Skin: No Rash, No Lesions, No Jaundice, No Bruising, No Other Objective Vitals Vital Signs Date Time Temp Pulse Resp B/P (MAP) Pulse Ox O2 Delivery O2 Flow Rate FiO2 04/22/24 05:00 98.0 70 18 131/63 (85) 96 98.0 04/21/24 20:00 Room Air* 0 21 Intake/Output Intake and Output 04/22/24 07:00 Intake Total 740 ml Output Total 600 ml Balance 140 ml Intake Oral 740 ml Output Urine Total 600 ml # Voids 2 Medications Current Medications Medications Dose Ordered Sig/Ingrid Route Start Time Stop Time Status Last Admin Dose Admin Sodium Chloride 10 ml Q8HR IV 04/20/24 22:00 04/22/24 05:04 10 ML Acetaminophen/ Hydrocodone Bitart 1 tab Q4HP PRN PO 04/20/24 16:15 04/22/24 05:00 1 TAB Ondansetron HCl 4 mg Q4HP PRN IV 04/20/24 16:15 Docusate Sodium 100 mg BIDPRN PRN PO 04/20/24 16:15 Acetaminophen 650 mg Q6HP PRN PO 04/20/24 16:15 Morphine Sulfate 2 mg Q4HPRN PRN IV 04/20/24 16:15 04/21/24 04:54 2 MG Nitroglycerin 0.4 mg Q5MINP PRN SL 04/20/24 16:15 Morphine Sulfate 2 mg Q30M PRN IV 04/20/24 16:15 Aspirin 81 mg DAILY PO 04/21/24 10:00 04/21/24 10:22 81 MG Clopidogrel Bisulfate 75 mg DAILY PO 04/21/24 10:00 04/21/24 10:22 75 MG Losartan Potassium 25 mg DAILY PO 04/21/24 10:00 04/21/24 10:22 25 MG Metoprolol Succinate 25 mg DAILY PO 04/21/24 10:00 04/21/24 10:21 25 MG Atorvastatin Calcium 40 mg HS PO 04/20/24 22:00 04/21/24 21:33 40 MG Diagnostic Test (Pha) 1 strip ACHS 04/20/24 17:00 04/22/24 05:04 1 STRIP Insulin Human Regular HS SC 04/20/24 22:00 04/21/24 21:38 3 UNITS Insulin Human Regular AC SC 04/20/24 17:00 04/22/24 06:28 2 UNITS Dextrose 50 ml UD PRN IV 04/20/24 16:30 Laboratory Results Laboratory Tests 04/21/24 06:30 Urinalysis Test 04/20/24 10:33 Urine Color Yellow (Yellow) Urine Clarity Clear (Clear) Urine pH 5.5 (5.0-9.0) Urine Specific [place] 1.028 (1.001-1.035) Urine Protein Trace (Negative) H Urine Ketones Negative (Negative) Urine Blood Negative /uL (Negative) Urine Nitrite Negative (Negative) Urine Bilirubin Negative (Negative) Urine Urobilinogen Normal mg/dL (Negative) Urine Leukocyte Esterase Negative /uL (Negative) Urine RBC 1 /hpf (0 - 3) Urine WBC 1 /hpf (0 - 3) Urine Squamous Epithelial Cells Few /hpf (<5) Urine Bacteria None seen /hpf (None Seen) Urine Mucus Few (None Seen) Urine Glucose Normal mg/dL (Normal) Labs and/or images reviewed: Labs reviewed by me, Image(s) reviewed by me Assessment/Plan Assessment/Plan Chest pain. Troponin negative x3, cardiology consult by Dr. Page appreciated Recent CABG 03/19/2024. [place] Diabetes. Hyperlipidemia. Hypertension. Elevated D-dimer 2.56 DVT ruled out PE ruled out Acute left shoulder and left arm pain: CT head negative C-spine CT negative CT left shoulder negative x-ray left shoulder negative ; patient already on Naprosyn and gabapentin at home Plan discussed with: Patient My Orders Orders - KARLEE DOMNIGUEZ MD Procedure Category Date Status Time Head Without Contrast CT 04/21/24 Resulted 13:[address] 04/21/24 Resulted Contrast 13:39 Ct L Shoulder Wo CT 04/21/24 Resulted Contrast 13:39 Date of Service: Apr 22, 2024 Billing Provider: KARLEE DOMINGUEZ MD Common Visit Codes: [id number] INP/OBS CARE(HIGH) KARLEE DOMINGUEZ MD Apr 22, 2024 09:36
--- NOTE | 2024-04-22 09:40 | DVHDS2 ---
Discharge Summary Date of Admission Apr 20, 2024 at 16:11 Date of Discharge: Apr 22, 2024 Admitting Diagnosis Chest pain left shoulder pain Wounds: None Labs/Diagnostic Data: Laboratory Results Test 04/22/24 05:02 04/21/24 06:30 04/20/24 10:33 04/20/24 10:11 POC Glucose 132 mg/dl (70-106) White Blood Count 8.0 10^3/uL (4.4-10.8) Red Blood Count 4.59 10^6/uL (4.5-5.90) Hemoglobin 12.7 g/dL (13.5-17.5) Hematocrit 37.6 % (41.0-53.0) Mean Corpuscular Volume 81.9 fL (80.0-100.0) Mean Corpuscular Hemoglobin 27.6 pg (28.0-32.0) Mean Corpuscular Hemoglobin Concent 33.6 g/dL (32.0-36.0) Red Cell Distribution Width 14.9 % (11.8-14.3) Platelet Count 227 10^3/uL (140-450) Mean Platelet Volume 7.8 fL (6.9-10.8) Neutrophils (%) (Auto) 62.3 % (37.0-80.0) Lymphocytes (%) (Auto) 26.9 % (10.0-50.0) Monocytes (%) (Auto) 6.6 % (0.0-12.0) Eosinophils (%) (Auto) 3.9 % (0.0-7.0) Basophils (%) (Auto) 0.3 % (0.0-2.0) Neutrophils # (Auto) 5.0 10 ^3/uL (1.6-8.6) Lymphocytes # (Auto) 2.1 10 ^3/uL (0.4-5.4) Monocytes # (Auto) 0.5 10 ^3/uL (0-1.3) Eosinophils # (Auto) 0.3 10 ^3/uL (0-0.8) Basophils # (Auto) 0 10 ^3/uL (0-0.2) Nucleated Red Blood Cells 0.1 % Sodium Level 138 mmol/L (136-145) Potassium Level 4.0 mmol/L (3.5-5.1) Chloride Level 106 mmol/L (98-107) Carbon Dioxide Level 24 mmol/L (20-31) Anion Gap 8 (5-15) Blood Urea Nitrogen 11 mg/dL (9-23) Creatinine 0.68 mg/dL (0.700-1.30) Glomerular Filtration Rate Calc 111 mL/min (>90) BUN/Creatinine Ratio 16.2 (10.0-20.0) Serum Glucose 180 mg/dL (74-106) Hemoglobin A1c 7.9 % A1C (<5.7) Calcium Level 9.3 mg/dL (8.7-10.4) Total Bilirubin 0.5 mg/dL (0.2-1.0) Aspartate Amino Transferase (AST) 12 U/L (13-40) Alanine Aminotransferase (ALT) 29 U/L (7-40) Alkaline Phosphatase 81 U/L (46-116) Total Protein 6.8 g/dL (5.7-8.2) Albumin 4.1 g/dL (3.2-4.8) Urine Color Yellow (Yellow) Urine Clarity Clear (Clear) Urine pH 5.5 (5.0-9.0) Urine Specific [place] 1.028 (1.001-1.035) Urine Protein Trace (Negative) Urine Ketones Negative (Negative) Urine Blood Negative /uL (Negative) Urine Nitrite Negative (Negative) Urine Bilirubin Negative (Negative) Urine Urobilinogen Normal mg/dL (Negative) Urine Leukocyte Esterase Negative /uL (Negative) Urine RBC 1 /hpf (0 - 3) Urine WBC 1 /hpf (0 - 3) Urine Squamous Epithelial Cells Few /hpf (<5) Urine Bacteria None seen /hpf (None Seen) Urine Mucus Few (None Seen) Urine Glucose Normal mg/dL (Normal) Prothrombin Time 11.5 sec (9.3-11.8) Prothrombin Time INR 1.09 (0.9-1.15) Activated Partial Thromboplast Time 26.1 SEC (24.5-34.5) D-Dimer, Quantitative 2.56 mg/L FEU (0.0-0.49) Troponin I High Sensitivity 5 ng/L (</=54) C-Reactive Protein High Sensitivity 0.34 mg/dL (<1.0) Thyroid Stimulating Hormone (TSH) 1.48 uIU/mL (0.55-4.78) Test 11/22/24 09:19 Magnesium Level 1.7 mg/dL (1.6-2.6) Other Laboratory Tests 04/21/24 06:30 Brief Hx & Hospital Course: 54-year-old male with a history of CABG at [facility] 03/19/2024 came in complaining of chest pain troponin negative x3 seen by Cardiology Dr. Page no new orders. History of diabetes hypertension hypercholesterolemia and chronic left shoulder arthritis D-dimer was elevated 2.56 DVT ruled out PE ruled out patient complained of acute left shoulder pain and left arm pain. CT head negative C-spine CT negative CT left shoulder negative x-ray left shoulder negative patient already on Naprosyn and gabapentin at home for the arthritis which he will continue to take. Discharged home. Prescription for [place] transmitted to the pharmacy and reviewed all his previous home medications Consults/Reason for consult Cardiology Dr. Page Operations or Procedures CT head C-spine CT CT left shoulder X-ray left shoulder Condition at Discharge: Fair Final Diagnosis/Problems List Chest pain. Troponin negative x3, cardiology consult by Dr. Page appreciated Recent CABG 03/19/2024. [facility] Diabetes. Hyperlipidemia. Hypertension. Elevated D-dimer 2.56 DVT ruled out PE ruled out Acute left shoulder and left arm pain: CT head negative C-spine CT negative CT left shoulder negative x-ray left shoulder negative ; patient already on Naprosyn and gabapentin at home Discharge Disposition: Home Discharge Instruct/Medications Diet: Cardiac 2g Na,low cholest Activity: Light activity Follow Up/Referral: Follow up with your primary Dr and with your shoe salesperson Resume all previous home medications Medications: [place] Transmitted to the pharmacy magaly [facility] Reviewed all the previous home medications Discharge Statement: "Patient was advised to return to the ER or call 911 if any headaches, dizziness, shortness of breath, chest pain, abdominal pain, bleeding, fevers, or worsening of medical condition. Patient was counseled about treatment plan, medications, possible side effects, patientverbalized understanding. All questions were answered to the best of my ability. This discharge took greater then 30 minutes in planning, reviewing documentation, counseling the patient, and discussing with other team members." ASSESSMENT ASSESSMENT Hospital Course Improved Assessment Chest pain. Troponin negative x3, cardiology consult by Dr. Page appreciated Recent CABG 03/19/2024. [place] Diabetes. Hyperlipidemia. Hypertension. Elevated D-dimer 2.56 DVT ruled out PE ruled out Acute left shoulder and left arm pain: CT head negative C-spine CT negative CT left shoulder negative x-ray left shoulder negative ; patient already on Naprosyn and gabapentin at home Date of Service: Apr 22, 2024 Billing Provider: KARLEE DOMINGUEZ MD Common Visit Codes: 11918-FOC/OBS DISCH DAY >30min KARLEE DOMINGUEZ MD Apr 22, 2024 09:40
[2024-04-22] MEDS ORDERED: HYDR-4902 PO (09:41)
[2024-04-22 12:42] VITALS: BP 101/57; PULSE 71; RESP 18; TEMP 36.9; O2SAT 96
[2024-04-22 13:00] VITALS: BP 125/66; PULSE 68; RESP 20; TEMP 98.3; O2SAT 97
--- NOTE | 2024-04-22 19:49 | DVHPN2 ---
Progress Note - Dictate Date Seen: Apr 22, 2024 Medical Necessity Reason Pt with a Central, PICC or Fol: No Subjective Patient was seen and evaluated in follow up. Patient has no new complaints at this time. Patient denies any cardiac symptoms. Patient is cardiac stable for discharge. vital signs Vital Sign Date Time Temp Pulse Resp B/P (MAP) Pulse Ox O2 Delivery O2 Flow Rate FiO2 04/22/24 12:42 36.9 71 18 96 04/22/24 11:37 101/57 04/22/24 08:00 Room Air* 0 21 Total Intake and Output 04/21/24 04/21/24 04/22/24 15:00 23:00 07:00 Intake Total 240 ml 240 ml 260 ml Output Total 600 ml Balance 240 ml -360 ml 260 ml medications Current Medications Medications Dose Ordered Sig/Ingrid Route Start Time Stop Time Status Last Admin Dose Admin Sodium Chloride 10 ml Q8HR IV 04/20/24 22:00 04/22/24 05:04 10 ML Acetaminophen/ Hydrocodone Bitart 1 tab Q4HP PRN PO 04/20/24 16:15 04/22/24 05:00 1 TAB Ondansetron HCl 4 mg Q4HP PRN IV 04/20/24 16:15 Docusate Sodium 100 mg BIDPRN PRN PO 04/20/24 16:15 Acetaminophen 650 mg Q6HP PRN PO 04/20/24 16:15 Morphine Sulfate 2 mg Q4HPRN PRN IV 04/20/24 16:15 04/21/24 04:54 2 MG Nitroglycerin 0.4 mg Q5MINP PRN SL 04/20/24 16:15 Morphine Sulfate 2 mg Q30M PRN IV 04/20/24 16:15 Aspirin 81 mg DAILY PO 04/21/24 10:00 04/22/24 11:38 81 MG Clopidogrel Bisulfate 75 mg DAILY PO 04/21/24 10:00 04/22/24 11:38 75 MG Losartan Potassium 25 mg DAILY PO 04/21/24 10:00 04/22/24 11:37 25 MG Metoprolol Succinate 25 mg DAILY PO 04/21/24 10:00 04/22/24 11:37 25 MG Atorvastatin Calcium 40 mg HS PO 04/20/24 22:00 04/21/24 21:33 40 MG Diagnostic Test (Pha) 1 strip ACHS 04/20/24 17:00 04/22/24 11:44 1 STRIP Insulin Human Regular HS SC 04/20/24 22:00 04/21/24 21:38 3 UNITS Insulin Human Regular AC SC 04/20/24 17:00 04/22/24 11:46 2 UNITS Dextrose 50 ml UD PRN IV 04/20/24 16:30 objective GENERAL: Awake, alert, oriented. LUNGS: Clear. CARDIOVASCULAR: Heart sounds are good. ABDOMEN: Soft. laboratory and microbiology Laboratory Tests 04/21/24 06:30 Test 04/21/24 06:30 Range/Units Serum Glucose 180 H 74-106 mg/dL Problem List Chest pain. 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 Diabetes. Hyperlipidemia. Hypertension. Assessment/Plan Continued all current supportive medical care. Morphine and [place] for pain management. Aspirin, Lipitor, Metoprolol, Plavix. Losartan. Additional plan as per the hospital course. Plan discussed with: Patient WILNER ROSS MD Apr 22, 2024 13:54
== END 2024-04-22 15:30 | disposition home or self-care (01) | DRG 351 ==
LOC: ER 08:53 → TELE 16:11 → TELE-CENTR 23:56
PROVIDERS: ADMIT Nurse Practitioner Family; ATTEND Nurse Practitioner Family
DX: M19.012 Primary osteoarthritis, left shoulder (principal); E11.65 Type 2 diabetes mellitus with hyperglycemia; M94.0 Chondrocostal junction syndrome [Tietze]; I25.10 Atherosclerotic heart disease of native coronary artery without angina pectoris; E78.5 Hyperlipidemia, unspecified; I10 Essential (primary) hypertension; S00.03XA Contusion of scalp, initial encounter; M47.812 Spondylosis without myelopathy or radiculopathy, cervical region; Z79.899 Other long term (current) drug therapy; X58.XXXA Exposure to other specified factors, initial encounter; Y93.89 Activity, other specified; Y92.89 Other specified places as the place of occurrence of the external cause; Y99.8 Other external cause status; Z79.82 Long term (current) use of aspirin; Z79.84 Long term (current) use of oral hypoglycemic drugs
CPT/HCPCS: 36415; 70450; 71046; 71275; 72125; 73030; 73200; 80053; 81001; 82962; 83036; 83735; 84443; 84484; 85025; 85379; 85610; 85730; 86141; 93005; 93971; 96361; 96374; 96375; G0378; J1815; J2405

== ENCOUNTER 2025-05-25 18:02 | Emergency (ER) | payer MEDICAID ==
[~2025-05-25] VITALS: Ht 170.2 cm; Wt 93.1 kg
[~2025-05-25 18:02] MED LIST changes: -ASPI-325 PO; +HYDR-4902 PO
[2025-05-25 18:08] VITALS: O2SAT 96
--- NOTE | 2025-05-25 19:57 | ED.PDOC ---
History of Present Illness HPI Comments 55 y/o M, with PMHx of DM, HLD, HTN, and HLD presents to the ED for CC of eye problem. Patient states, he has been experiencing left-eye pain x4days with associated left-eye swelling x1day. Patient denies any trauma, injury, fall, or changes in vision. No others symptoms or modifying factors are present at this time. Chief Complaint: Face pain Time Seen by MD: 19:50 Primary Care Provider: unknown Reviewed Notes: Nurses Notes, Medications, Allergies Allergies: Coded Allergies: NO KNOWN ALLERGIES (Unverified , 07/02/23) Home Meds Active Scripts Gentamicin Sulfate (Gentamicin Sulfate) 0.3 % Za[place], 1 DROP LEFTEYE QID for 10 Days, #5 ML Prov:NESS ROMO MD 05/25/25 Mupirocin Calcium (Topical) (MUPIROCIN) 2 % Cre, 2 % EX BID for 10 Days, #90 CRE Prov:NESS ROMO MD 05/25/25 Amoxicillin & Pot Clavulanate (AUGMENTIN TABLET) 875 Mg Tb, 875 MG PO BID for 10 Days, #20 TAB Prov:NESS ROMO MD 05/25/25 Hydrocodone-Acetaminophen (Hydrocodone Bitartrate/AC 5-325 mg) 1 Tab Tab, 1 TAB PO QID PRN, #30 TAB Prov:KARLEE DOMINGUEZ MD 04/22/24 Metoprolol Succinate (Toprol Xl) 50 Mg Tab, 25 MG PO DAILY for 90 Days, #45 TAB 1 Refill Prov:JAMES RODRIGUEZ MD 03/07/24 Losartan Potassium (Losartan Potassium) 50 Mg Tab, 25 MG PO DAILY for 90 Days, #45 TAB 1 Refill Prov:JAMES RODRIGUEZ MD 03/07/24 Clopidogrel Bisulfate (CLOPIDOGREL) 75 Mg Tab, 75 MG PO DAILY for 90 Days, #90 TAB 1 Refill Prov:JAMES RODRIGUEZ MD 03/07/24 Reported Medications Naproxen (Naproxen Ec) 500 Mg Tab, 500 MG PO, TAB 03/02/24 Atorvastatin Calcium (Lipitor) 40 Mg Tab, 1 TAB PO DAILY 07/07/23 Gabapentin (Gabapentin) 100 Mg Cap, 6 CAP PO TID 07/07/23 Metformin Hydrochloride (Metformin Hcl) 500 Mg Tab, 1 TAB PO DAILY 07/06/23 Information Source: Patient Mode of Arrival: Ambulatory Severity: Moderate Timing: Days Duration: Since onset Prehospital treatment: None Past Medical History PAST MEDICAL HISTORY: DM, High Lipids, HTN Surgical History: Appendectomy Family History Family History: Reviewed,noncontributory to illness Social History Smoker: Non-Smoker Alcohol: Denies ETOH Use Drugs: Denies Drug Use Lives In: Home Constitutional: denies: chills, diaphoresis, fatigue, fever, malaise, sweats, weakness, others EENTM: reports: others (left eye swelling); denies: blurred vision, double vision, ear bleeding, ear discharge, ear drainage, ear pain, ear ringing, eye pain, eye redness, hearing loss, mouth pain, mouth swelling, nasal discharge, nose bleeding, nose congestion, nose pain, photophobia, tearing, throat pain, throat swelling, voice changes Respiratory: denies: cough, hemoptysis, orthopnea, SOB at rest, shortness of breath, SOB with excertion, stridor, wheezing, others Cardiovascular: denies: chest pain, dizzy spells, diaphoresis, Dyspnea on exertion, edema, irregular heart beat, left arm pain, lightheadedness, palpitations, PND, syncope, others Gastrointestinal: denies: abdomen distended, abdominal pain, blood streaked bowels, constipated, diarrhea, dysphagia, difficulty swallowing, hematemesis, melena, nausea, poor appetite, poor fluid intake, rectal bleeding, rectal pain, vomiting, others Genitourinary: denies: burning, dysuria, flank pain, frequency, hematuria, incontinence, penile discharge, penile sore, pain, testicle pain, testicle swelling, urgency, others Neurological: denies: dizziness, fainting, headache, left sided numbness, left sided weakness, numbness, paresthesia, pre-existing deficit, right sided numbness, right sided weakness, seizure, speech problems, tingling, tremors, weakness, others Musculoskeletal: denies: back pain, gout, joint pain, joint swelling, muscle pain, muscle stiffness, neck pain, others Integumetry: denies: bruises, change in color, change in hair/nails, dryness, laceration, lesions, lumps, rash, wounds, others Allergic/Immunocompromised: denies: Difficulty Healing, Frequent Infections, Hives, Itching, others Hematologic/Lymphatic: denies: anemia, blood clots, easy bleeding, easy bruising, swollen glands, others Endocrine: denies: excessive hunger, excessive sweating, excessive thirst, excessive urination, flushing, intolerance to cold, intolerance to heat, unexplained weight gain, unexplained weight loss, others Psychiatric: denies: anxiety, bipolar disorder, depression, hopeless, panic disorder, schizophrenia, sleepless, suicidal, others All Other Systems: Reviewed and Negative Physical Exam General Appearance: Mild Distress HEENT: Normal ENT Inspection, Pharynx Normal, TMs Normal Neck: Full Range of Motion, Non-Tender, Normal, Normal Inspection Respiratory: Chest Non-Tender, Lungs Clear, No Accessory Muscle Use, No Respiratory Distress, Normal Breath Sounds Cardiovascular: No Edema, No JVD, No Murmur, No Gallop, Normal Peripheral Pulses, Regular Rate/Rhythm Breast Exam: Deferred Gastrointestinal: No Organomegaly, Non Tender, No Pulsatile Mass, Normal Bowel Sounds, Soft Genitalia: Deferred Pelvic: Deferred Rectal: Deferred Extremities: No calf tenderness, Normal capillary refill, Normal inspection, Normal range of motion, Non-tender, No pedal edema Musculoskeletal : Apperance: Normal Neurologic: Alert, central communications specialist II-XII nml as Tested, No Motor Deficits, Normal Affect, Normal Mood, No Sensory Deficits Cerebellar Function: Normal Reflexes: Normal Skin: Dry, Normal Color, Warm Lymphatic: No Adenopathy Was a procedure done? Was a procedure done?: No Differential Dx Considerations may include: contact dermatitis, yves-orbital swelling, cellulitis, folliculitis X-Ray, Labs, Meds, VS Vital Signs Date Time Temp Pulse Resp B/P (MAP) Pulse Ox O2 Delivery O2 Flow Rate FiO2 05/25/25 21:10 98.4 62 16 141/75 (97) 98.4 05/25/25 18:08 97.5 65 16 144/81 96 97.5 Current Medications Medications (Trade) Dose Ordered Sig/Ingrid Route Start Time Stop Time Status Last Admin Amoxicillin/ Clavulanate Potassium (Augmentin Tablet) 875 mg ONCE ONCE PO 05/25/25 21:45 05/25/25 21:46 DC 05/25/25 21:45 Time of 1ST Reevaluation: 20:20 Reevaluation 1ST: Unchanged Patient Education/Counseling: Diagnosis, Treatment Family Education/Counseling: Diagnosis, Treatment SEPSIS Sepsis Screen Date sepsis recognized/suspect: May 25, 2025 Time Sepsis recognized/suspect: 1811 Recent Procedure: No On Antibiotic Therapy: No Respiratory Rate >20: No Heart Rate >90: No Temp<36 C (96.8 F) or >38.3 C: No SBP <90 or MAP <65 mmHG: No New Acute Mental Status Change: No Is the patient on CPAP, BIPAP,: No Vital Signs Date Time Temp Pulse Resp B/P (MAP) Pulse Ox O2 Delivery O2 Flow Rate FiO2 05/25/25 21:10 98.4 62 16 141/75 (97) 98.4 05/25/25 18:08 97.5 65 16 144/81 96 97.5 Medications Medications Dose Ordered Sig/Ingrid Route Start Time Stop Time Status Last Admin Dose Admin Amoxicillin/ Clavulanate Potassium 875 mg ONCE ONCE PO 05/25/25 21:45 05/25/25 21:46 DC 05/25/25 21:45 Departure 1 Departure Time of Disposition: 22:00 Impression: Primary Impression: Periorbital cellulitis of left eye Additional Impression: Cellulitis, face Disposition: HOME / SELF CARE / HOMELESS Condition: Stable e-Prescriptions Gentamicin Sulfate (Gentamicin Sulfate) 0.3 % Zaida 1 DROP LEFTEYE QID for 10 Days, #5 ML Prov: NESS ROMO MD 05/25/25 Mupirocin Calcium (Topical) (MUPIROCIN) 2 % Cre 2 % EX BID for 10 Days, #90 CRE Prov: NESS ROMO MD 05/25/25 Amoxicillin & Pot Clavulanate (AUGMENTIN TABLET) 875 Mg Tb 875 MG PO BID for 10 Days, #20 TAB Prov: NESS ROMO MD 05/25/25 Discharged With: Self Critical Care Note Critical Care Time?: No Stability Stability form required: No Heart Score Heart Score: Heart Score Response (Comments) Value History N/A 0 EKG N/A 0 Age N/A 0 Risk Factors N/A 0 Troponin N/A 0 Total 0 I personally scribed for NESS ROMO MD ([email or web address]) on 05/25/25 at 19:57. Electronically submitted by Lisa Leong ([email or web address]). I personally scribed for NESS ROMO MD ([email or web address]) on 05/25/25 at 20:28. Electronically submitted by Lisa Leong ([email or web address]). NESS ROMO MD May 25, 2025 19:57
[2025-05-25 21:10] VITALS: BP 141/75; PULSE 62; RESP 16; TEMP 98.4
[2025-05-25] MEDS ORDERED: AUG875T PO (21:37)
[2025-05-25] MEDS ORDERED: GENT0.3S10 LEFTEYE (21:37)
[2025-05-25] MEDS ORDERED: MUPI2CRE17 EX (21:37)
== END 2025-05-25 22:29 | disposition home or self-care (01) ==
LOC: ER 18:02
DX: L03.213 Periorbital cellulitis (principal); L03.211 Cellulitis of face; E11.9 Type 2 diabetes mellitus without complications; E78.5 Hyperlipidemia, unspecified; I10 Essential (primary) hypertension; Z90.49 Acquired absence of other specified parts of digestive tract; Z79.899 Other long term (current) drug therapy